=== PATIENT | male | born 1955 | race Caucasian/White ===

== ENCOUNTER → 2020-05-14 | Emergency (ER) | payer MEDICAID ==
[~2020-05-14] VITALS: Ht 175.3 cm; Wt 99.8 kg
[~2020-05-14] MED LIST: ALLO100T PO; ASPI81CH58 PO; BACL10TA PO; CLOP75TA28 PO; DICL1GEL26 TD; DOX100T PO; ECON1CRE EX; GABA300C10; LISI-275 PO; LORA-622 PO; METF-370 PO; METO25TA5 PO; OXYC325T14 PO; PANT40TA2 PO; PRAV20TA3 PO; RANO1000 PO; TRIA0.1P11 TOP; methylPREDNISolone SOD SUCC 125 MG/2 ML VL IM ONE
[2020-05-14 19:47] VITALS: BP 142/79
[2020-05-14 22:46] LABS: Basophils # (auto) 0.1 10 ^3/uL (0-0.2); Basophils % (auto) 0.6 % (0.0-2.0); Eosinophils # (auto) 0.7 10 ^3/uL (0-0.8); Eosinophils % (auto) 7.2 % (0.0-7.0); Hematocrit 42.3 % (41.0-53.0); Hemoglobin 14.4 g/dL (13.5-17.5); Lymphocytes # (auto) 2.8 10 ^3/uL (0.4-5.4); Lymphocytes % (auto) 28.5 % (10.0-50.0); Mean Corpuscular Hemoglobin 31.2 pg (28.0-32.0); Mean Corpuscular Hgb Conc. 34.1 g/dL (32.0-36.0); Mean Corpuscular Volume 91.5 fL (80.0-100.0); Monocytes # (auto) 0.7 10 ^3/uL (0-1.3); Monocytes % (auto) 7.3 % (0.0-12.0); Neutrophils # (auto) 5.6 10 ^3/uL (1.6-8.6); Neutrophils % (auto) 56.4 % (37.0-80.0); Nucleated Red Blood Cells % 0.1 %; Platelet Count (auto) 262 10^3/uL (140-450); Red Blood Cells 4.62 10^6/uL (4.5-5.90); Red Cell Distribution Width 14.7 % (11.8-14.3); White Blood Cell 9.9 10^3/uL (4.4-10.8)
[2020-05-14 23:02] LABS: Albumin 3.9 g/dL (3.4-5.0); Anion Gap 5 (5-15); Blood Urea Nitrogen 13 mg/dL (7-18); Calcium 9.2 mg/dL (8.5-10.1); Carbon Dioxide 27 mmol/L (21-32); Chloride 109 mmol/L (98-107); Glucose 98 mg/dL (74-106); Potassium 4.1 mmol/L (3.5-5.1); Sodium 141 mmol/L (136-145)
[2020-05-14 23:07] LABS: Alanine Aminotransferase 28 U/L (16-61); Alkaline Phosphatase 86 U/L (45-117); Aspartate Aminotransferase 15 U/L (15-37); BUN/Creatinine Ratio 11.4; Bilirubin, Total 0.4 mg/dL (0.2-1.0); GFR African American 83 mL/min; GFR Non-African American 69 mL/min; Total Protein 7.6 g/dL (6.4-8.2)
== END | disposition home or self-care (01) ==
LOC: ER 19:36
DX: M54.31 Sciatica, right side (principal); G89.4 Chronic pain syndrome; R07.9 Chest pain, unspecified; M25.571 Pain in right ankle and joints of right foot; J45.909 Unspecified asthma, uncomplicated; E11.9 Type 2 diabetes mellitus without complications; E78.5 Hyperlipidemia, unspecified; I10 Essential (primary) hypertension; I25.2 Old myocardial infarction; I25.810 Atherosclerosis of coronary artery bypass graft(s) without angina pectoris; Z98.61 Coronary angioplasty status; Z79.82 Long term (current) use of aspirin; Z79.899 Other long term (current) drug therapy
CPT/HCPCS: 36415; 71045; 80053; 83880; 84484; 85025; 93005; 96372; 99285; J2930

== ENCOUNTER 2020-09-15 14:28 | Inpatient (IN) | payer MEDICAID ==
[~2020-09-15] VITALS: Ht 175.3 cm; Wt 96.8 kg
[~2020-09-15 14:28] MED LIST changes: -methylPREDNISolone SOD SUCC 125 MG/2 ML VL IM ONE
[2020-09-15] MEDS ORDERED: ACETAMINOPHEN 325 MG TAB PO ONE (16:15)
[2020-09-15 18:15] LABS: Basophils # (auto) 0 10 ^3/uL (0-0.2); Basophils % (auto) 0.1 % (0.0-2.0); Eosinophils # (auto) 0 10 ^3/uL (0-0.8); Hematocrit 36.9 % (41.0-53.0); Hemoglobin 12.5 g/dL (13.5-17.5); Lymphocytes # (auto) 0.8 10 ^3/uL (0.4-5.4); Lymphocytes % (auto) 5.8 % (10.0-50.0); Mean Corpuscular Hemoglobin 30.4 pg (28.0-32.0); Mean Corpuscular Hgb Conc. 33.9 g/dL (32.0-36.0); Mean Corpuscular Volume 89.7 fL (80.0-100.0); Monocytes # (auto) 0.6 10 ^3/uL (0-1.3); Monocytes % (auto) 4.5 % (0.0-12.0); Neutrophils # (auto) 11.6 10 ^3/uL (1.6-8.6); Neutrophils % (auto) 89.6 % (37.0-80.0); Nucleated Red Blood Cells % 0.2 %; Platelet Count (auto) 339 10^3/uL (140-450); Red Blood Cells 4.12 10^6/uL (4.5-5.90)
[2020-09-15 18:22] LABS: Albumin 2.5 g/dL (3.4-5.0); Anion Gap 9 (5-15); BUN/Creatinine Ratio 19.7; Blood Urea Nitrogen 24 mg/dL (7-18); Calcium 8.2 mg/dL (8.5-10.1); Carbon Dioxide 21 mmol/L (21-32); Chloride 101 mmol/L (98-107); GFR African American 77 mL/min; GFR Non-African American 64 mL/min; Glucose 104 mg/dL (74-106); Potassium 4.4 mmol/L (3.5-5.1); Sodium 131 mmol/L (136-145)
[2020-09-15 18:26] LABS: INR 1.15 (0.9-1.15); Partial Thromboplastin Time 29.2 sec (23.0-31.2)
[2020-09-15 18:27] LABS: Alanine Aminotransferase 91 U/L (16-61); Alkaline Phosphatase 96 U/L (45-117); Aspartate Aminotransferase 73 U/L (15-37); Bilirubin, Total 0.5 mg/dL (0.2-1.0); Total Protein 7.4 g/dL (6.4-8.2)
[2020-09-15] MEDS ORDERED: ONDANSETRON HCL 4 MG/2 ML VIAL IV PRN (23:00)
[2020-09-15] MEDS ORDERED: NITROGLYCERIN 0.4 MG SL TAB SL PRN (23:00)
[2020-09-15] MEDS ORDERED: ACETAMINOPHEN 500 MG TAB PO PRN (23:00)
[2020-09-15] MEDS ORDERED: MORPHINE SULF INJ 2 MG/ML SYRINGE 1ML IV PRN (23:00)
[2020-09-15] MEDS ORDERED: DEXTROSE (50%) 50ML SYRG IV PRN (23:00)
[2020-09-15 23:50] VITALS: BP 106/66
[2020-09-16] MEDS: AZITHROMYCIN 500MG/D5WorNS 250ml IV SCH ×2 (00:11→11:48)
[2020-09-16 02:14] LABS: Magnesium 2.1 mg/dL (1.6-2.6)
[2020-09-16 02:22] LABS: CRP High Sensitivity 15.3 mg/dL (< 0.3)
[2020-09-16 06:00] VITALS: BP 108/62
[2020-09-16] MEDS: ACCU-CHEK COMFORT CURVE STRIP VI SCH ×4 (06:43→22:22)
[2020-09-16] MEDS: InsuLIN REG 1unit/0.01ml Soln (100units/ml) SC SCH ×4 (06:43→23:37)
[2020-09-16 07:49] LABS: Basophils # (auto) 0 10 ^3/uL (0-0.2); Basophils % (auto) 0.1 % (0.0-2.0); Eosinophils # (auto) 0 10 ^3/uL (0-0.8); Eosinophils % (auto) 0.1 % (0.0-7.0); Hematocrit 36.5 % (41.0-53.0); Hemoglobin 12.3 g/dL (13.5-17.5); Lymphocytes # (auto) 0.9 10 ^3/uL (0.4-5.4); Lymphocytes % (auto) 7.7 % (10.0-50.0); Mean Corpuscular Hemoglobin 30.3 pg (28.0-32.0); Mean Corpuscular Hgb Conc. 33.7 g/dL (32.0-36.0); Mean Corpuscular Volume 89.8 fL (80.0-100.0); Monocytes # (auto) 0.4 10 ^3/uL (0-1.3); Monocytes % (auto) 3.1 % (0.0-12.0); Neutrophils # (auto) 10.7 10 ^3/uL (1.6-8.6); Platelet Count (auto) 334 10^3/uL (140-450); Red Blood Cells 4.06 10^6/uL (4.5-5.90); Red Cell Distribution Width 14.2 % (11.8-14.3); White Blood Cell 12.1 10^3/uL (4.4-10.8)
[2020-09-16 08:14] LABS: Potassium 4.3 mmol/L (3.5-5.1)
[2020-09-16 08:29] LABS: Albumin 2.2 g/dL (3.4-5.0); BUN/Creatinine Ratio 17.1; Bilirubin, Total 0.6 mg/dL (0.2-1.0); Calcium 8.5 mg/dL (8.5-10.1); Total Protein 7.3 g/dL (6.4-8.2)
[2020-09-16 09:28] LABS: Urine Bacteria NONE SEEN /hpf (None Seen); Urine Blood Negative /uL (Negative); Urine Mucus FEW (None Seen); Urine Specific Gravity 1.022 (1.001-1.035); Urine WBC 2 /hpf (0 - 3)
[2020-09-16] MEDS: ALBUTEROL SULF HFA 90MCG INH 200DOSE IN PRN (09:50)
[2020-09-16] MEDS: DexAMETHasone SOD PHOS 10MG/1ML VIAL INJ IV SCH (11:48)
[2020-09-16] MEDS: ASCORBIC ACID 1,000 MG TAB PO SCH (11:49)
[2020-09-16] MEDS: LISINOPRIL 5 MG TAB PO SCH (11:49)
[2020-09-16] MEDS: CHOLECALCIFEROL (VITD3) 2,000 UNIT CAP PO SCH (11:49)
[2020-09-16] MEDS: ZINC SULFATE 220mg CAP or TAB PO SCH (11:49)
[2020-09-16] MEDS: METOPROLOL SUCCINATE XL 50 MG TAB PO SCH (11:49)
[2020-09-16] MEDS: CLOPIDOGREL BISULFATE 75 MG TAB PO SCH (11:49)
[2020-09-16] MEDS: ASPirin 81 mg TAB PO SCH (11:49)
[2020-09-16] MEDS: PANTOPRAZOLE 40 MG TAB PO SCH (11:49)
[2020-09-16] MEDS: ENOXAPARIN SOD 40 MG/0.4 ML SYRINGE SC SCH ×2 (11:50→22:22)
[2020-09-16] MEDS: ALLOPURINOL 100 MG TAB PO SCH (11:50)
[2020-09-16] MEDS: RANOLAZINE ER 500 MG TAB PO SCH (11:50)
[2020-09-16] MEDS ORDERED: REMDESIVIR PER PHARMACY 0 ML IV SCH (12:30)
[2020-09-16] MEDS ORDERED: REMDESIVIR 200 MG in NS 210ml LOADING DOSE ADULT IV ONE (15:00)
[2020-09-16] MEDS: ATORVASTATIN 20 MG TAB PO SCH (22:22)
[2020-09-17] MEDS: InsuLIN REG 1unit/0.01ml Soln (100units/ml) SC SCH ×4 (06:55→21:30)
[2020-09-17] MEDS: ACCU-CHEK COMFORT CURVE STRIP VI SCH ×4 (06:55→21:30)
[2020-09-17 08:26] LABS: Potassium 4.4 mmol/L (3.5-5.1)
[2020-09-17 08:56] LABS: Albumin 2.1 g/dL (3.4-5.0); BUN/Creatinine Ratio 22.1; Bilirubin, Total 0.3 mg/dL (0.2-1.0); Calcium 8.8 mg/dL (8.5-10.1); Total Protein 7.2 g/dL (6.4-8.2)
[2020-09-17] MEDS: DexAMETHasone SOD PHOS 10MG/1ML VIAL INJ IV SCH (11:27)
[2020-09-17] MEDS: ZINC SULFATE 220mg CAP or TAB PO SCH (11:27)
[2020-09-17] MEDS: ASPirin 81 mg TAB PO SCH (11:27)
[2020-09-17] MEDS: CLOPIDOGREL BISULFATE 75 MG TAB PO SCH (11:28)
[2020-09-17] MEDS: PANTOPRAZOLE 40 MG TAB PO SCH (11:32)
[2020-09-17] MEDS: RANOLAZINE ER 500 MG TAB PO SCH (11:33)
[2020-09-17] MEDS: CHOLECALCIFEROL (VITD3) 2,000 UNIT CAP PO SCH (11:34)
[2020-09-17] MEDS: METOPROLOL SUCCINATE XL 50 MG TAB PO SCH (11:34)
[2020-09-17] MEDS: ASCORBIC ACID 1,000 MG TAB PO SCH (11:34)
[2020-09-17] MEDS: ENOXAPARIN SOD 40 MG/0.4 ML SYRINGE SC SCH ×2 (11:35→21:30)
[2020-09-17] MEDS: ALLOPURINOL 100 MG TAB PO SCH (11:35)
[2020-09-17] MEDS: LISINOPRIL 5 MG TAB PO SCH (11:35)
[2020-09-17] MEDS: AZITHROMYCIN 500MG/D5WorNS 250ml IV SCH (12:17)
[2020-09-17] MEDS: REMDESIVIR 100 MG in SODIUM CHL 0.9% 250 ML IV SCH (17:00)
[2020-09-17] MEDS: ATORVASTATIN 20 MG TAB PO SCH (21:30)
[2020-09-17 22:00] VITALS: BP 110/67
[2020-09-18] MEDS ORDERED: COLCPOW2 PO (01:24)
[2020-09-18] MEDS ORDERED: CROM4SOL6 EACHEYE (01:24)
[2020-09-18] MEDS ORDERED: ALL300T PO (01:24)
[2020-09-18] MEDS ORDERED: PROM25TA5 PO (01:24)
[2020-09-18] MEDS ORDERED: IBUP800T24 PO (01:24)
[2020-09-18] MEDS: ACCU-CHEK COMFORT CURVE STRIP VI SCH ×4 (06:25→21:52)
[2020-09-18] MEDS: InsuLIN REG 1unit/0.01ml Soln (100units/ml) SC SCH ×4 (06:38→21:48)
[2020-09-18 07:37] LABS: Potassium 4.3 mmol/L (3.5-5.1)
[2020-09-18 07:49] LABS: BUN/Creatinine Ratio 28.4; Bilirubin, Total 0.4 mg/dL (0.2-1.0); Calcium 8.9 mg/dL (8.5-10.1); Total Protein 6.7 g/dL (6.4-8.2)
[2020-09-18] MEDS: ALBUTEROL SULF HFA 90MCG INH 200DOSE IN PRN ×2 (07:56→21:49)
[2020-09-18 08:00] VITALS: BP 113/73
[2020-09-18] MEDS: METOPROLOL SUCCINATE XL 50 MG TAB PO SCH (10:00)
[2020-09-18] MEDS: ASPirin 81 mg TAB PO SCH (10:47)
[2020-09-18] MEDS: PANTOPRAZOLE 40 MG TAB PO SCH (10:58)
[2020-09-18] MEDS: CLOPIDOGREL BISULFATE 75 MG TAB PO SCH (10:58)
[2020-09-18] MEDS: ZINC SULFATE 220mg CAP or TAB PO SCH (10:58)
[2020-09-18] MEDS: AZITHROMYCIN 500MG/D5WorNS 250ml IV SCH (10:58)
[2020-09-18] MEDS: DexAMETHasone SOD PHOS 10MG/1ML VIAL INJ IV SCH (10:58)
[2020-09-18] MEDS: CHOLECALCIFEROL (VITD3) 2,000 UNIT CAP PO SCH (10:59)
[2020-09-18] MEDS: ASCORBIC ACID 1,000 MG TAB PO SCH (10:59)
[2020-09-18] MEDS: RANOLAZINE ER 500 MG TAB PO SCH (10:59)
[2020-09-18] MEDS: ALLOPURINOL 100 MG TAB PO SCH (11:00)
[2020-09-18] MEDS: LISINOPRIL 5 MG TAB PO SCH (11:00)
[2020-09-18] MEDS: ENOXAPARIN SOD 40 MG/0.4 ML SYRINGE SC SCH ×2 (11:01→21:47)
[2020-09-18 13:00] VITALS: BP 117/78
[2020-09-18] MEDS: REMDESIVIR 100 MG in SODIUM CHL 0.9% 250 ML IV SCH (15:06)
[2020-09-18 16:00] VITALS: BP 105/66
[2020-09-18] MEDS: ATORVASTATIN 20 MG TAB PO SCH (21:46)
[2020-09-19] VITALS: BP 122/68
[2020-09-19 04:13] VITALS: BP 114/58
[2020-09-19 04:30] VITALS: BP 102/71
[2020-09-19 06:52] VITALS: BP 103/62
[2020-09-19] MEDS: ALBUTEROL SULF HFA 90MCG INH 200DOSE IN PRN ×2 (06:56→19:12)
[2020-09-19] MEDS: InsuLIN REG 1unit/0.01ml Soln (100units/ml) SC SCH ×4 (06:57→22:00)
[2020-09-19] MEDS: ACCU-CHEK COMFORT CURVE STRIP VI SCH ×4 (06:57→22:00)
[2020-09-19 08:00] VITALS: BP 117/72
[2020-09-19 08:07] LABS: Basophils # (auto) 0 10 ^3/uL (0-0.2); Basophils % (auto) 0.1 % (0.0-2.0); Eosinophils # (auto) 0.1 10 ^3/uL (0-0.8); Eosinophils % (auto) 0.6 % (0.0-7.0); Hematocrit 35.5 % (41.0-53.0); Hemoglobin 12.1 g/dL (13.5-17.5); Lymphocytes # (auto) 1.3 10 ^3/uL (0.4-5.4); Lymphocytes % (auto) 13.4 % (10.0-50.0); Mean Corpuscular Hemoglobin 30.5 pg (28.0-32.0); Mean Corpuscular Hgb Conc. 34.1 g/dL (32.0-36.0); Mean Corpuscular Volume 89.7 fL (80.0-100.0); Monocytes # (auto) 0.5 10 ^3/uL (0-1.3); Monocytes % (auto) 5.5 % (0.0-12.0); Neutrophils # (auto) 7.5 10 ^3/uL (1.6-8.6); Neutrophils % (auto) 80.4 % (37.0-80.0); Nucleated Red Blood Cells % 0.1 %; Platelet Count (auto) 421 10^3/uL (140-450); Red Blood Cells 3.95 10^6/uL (4.5-5.90); Red Cell Distribution Width 13.5 % (11.8-14.3); White Blood Cell 9.3 10^3/uL (4.4-10.8)
[2020-09-19 08:26] LABS: Potassium 4.2 mmol/L (3.5-5.1)
[2020-09-19 08:35] LABS: Albumin 2.2 g/dL (3.4-5.0); BUN/Creatinine Ratio 24.4; Bilirubin, Total 0.3 mg/dL (0.2-1.0); Calcium 8.8 mg/dL (8.5-10.1); Total Protein 6.8 g/dL (6.4-8.2)
[2020-09-19] MEDS: PANTOPRAZOLE 40 MG TAB PO SCH (10:15)
[2020-09-19] MEDS: ASPirin 81 mg TAB PO SCH (10:16)
[2020-09-19] MEDS: METOPROLOL SUCCINATE XL 50 MG TAB PO SCH (10:16)
[2020-09-19] MEDS: ZINC SULFATE 220mg CAP or TAB PO SCH (10:16)
[2020-09-19] MEDS: ALLOPURINOL 100 MG TAB PO SCH (10:17)
[2020-09-19] MEDS: DexAMETHasone SOD PHOS 10MG/1ML VIAL INJ IV SCH (10:17)
[2020-09-19] MEDS: ENOXAPARIN SOD 40 MG/0.4 ML SYRINGE SC SCH ×2 (10:17→23:02)
[2020-09-19] MEDS: FUROSEMIDE 40 MG/4 ML VIAL IV SCH (10:17)
[2020-09-19] MEDS: LISINOPRIL 5 MG TAB PO SCH (10:17)
[2020-09-19] MEDS: CHOLECALCIFEROL (VITD3) 2,000 UNIT CAP PO SCH (10:18)
[2020-09-19] MEDS: CLOPIDOGREL BISULFATE 75 MG TAB PO SCH (10:18)
[2020-09-19] MEDS: ASCORBIC ACID 1,000 MG TAB PO SCH (10:18)
[2020-09-19] MEDS: AZITHROMYCIN 500MG/D5WorNS 250ml IV SCH (10:19)
[2020-09-19] MEDS: RANOLAZINE ER 500 MG TAB PO SCH (11:28)
[2020-09-19] MEDS: REMDESIVIR 100 MG in SODIUM CHL 0.9% 250 ML IV SCH (14:30)
[2020-09-19] MEDS ORDERED: FUROSEMIDE 40 MG/4 ML VIAL IV ONE (16:00)
[2020-09-19 16:30] VITALS: BP 101/62
[2020-09-19] MEDS: ATORVASTATIN 20 MG TAB PO SCH (23:02)
[2020-09-19] MEDS: TEMAZEPAM 15 MG CAP PO PRN (23:07)
[2020-09-20] VITALS: BP 103/68
[2020-09-20] MEDS: ACCU-CHEK COMFORT CURVE STRIP VI SCH ×4 (06:29→22:00)
[2020-09-20] MEDS: InsuLIN REG 1unit/0.01ml Soln (100units/ml) SC SCH ×4 (06:37→23:00)
[2020-09-20 07:01] LABS: Potassium 4.2 mmol/L (3.5-5.1)
[2020-09-20 07:16] LABS: Albumin 2.3 g/dL (3.4-5.0); BUN/Creatinine Ratio 25.5; Bilirubin, Total 0.4 mg/dL (0.2-1.0); Calcium 8.8 mg/dL (8.5-10.1); Total Protein 7.1 g/dL (6.4-8.2)
[2020-09-20] MEDS: AZITHROMYCIN 500MG/D5WorNS 250ml IV SCH (09:57)
[2020-09-20] MEDS: DexAMETHasone SOD PHOS 10MG/1ML VIAL INJ IV SCH (09:58)
[2020-09-20] MEDS: ZINC SULFATE 220mg CAP or TAB PO SCH (09:59)
[2020-09-20] MEDS: FUROSEMIDE 40 MG/4 ML VIAL IV SCH (09:59)
[2020-09-20] MEDS: ASPirin 81 mg TAB PO SCH (09:59)
[2020-09-20] MEDS: RANOLAZINE ER 500 MG TAB PO SCH (10:00)
[2020-09-20] MEDS: PANTOPRAZOLE 40 MG TAB PO SCH (10:00)
[2020-09-20] MEDS: CLOPIDOGREL BISULFATE 75 MG TAB PO SCH (10:00)
[2020-09-20] MEDS: ASCORBIC ACID 1,000 MG TAB PO SCH (10:01)
[2020-09-20] MEDS: METOPROLOL SUCCINATE XL 50 MG TAB PO SCH (10:01)
[2020-09-20] MEDS: CHOLECALCIFEROL (VITD3) 2,000 UNIT CAP PO SCH (10:02)
[2020-09-20] MEDS: LISINOPRIL 5 MG TAB PO SCH (10:03)
[2020-09-20] MEDS: ALLOPURINOL 100 MG TAB PO SCH (10:03)
[2020-09-20] MEDS: ENOXAPARIN SOD 40 MG/0.4 ML SYRINGE SC SCH ×2 (10:04→22:55)
[2020-09-20] MEDS: REMDESIVIR 100 MG in SODIUM CHL 0.9% 250 ML IV SCH (14:50)
[2020-09-20 16:00] VITALS: BP 135/51
[2020-09-20] MEDS: ATORVASTATIN 20 MG TAB PO SCH (22:55)
[2020-09-21] VITALS: BP 102/50
[2020-09-21] MEDS: ACCU-CHEK COMFORT CURVE STRIP VI SCH ×4 (06:15→22:14)
[2020-09-21] MEDS: InsuLIN REG 1unit/0.01ml Soln (100units/ml) SC SCH ×4 (06:19→22:15)
[2020-09-21 08:00] VITALS: BP 106/58
[2020-09-21] MEDS: LISINOPRIL 5 MG TAB PO SCH (10:00)
[2020-09-21] MEDS: DexAMETHasone SOD PHOS 10MG/1ML VIAL INJ IV SCH (11:16)
[2020-09-21] MEDS: FUROSEMIDE 40 MG/4 ML VIAL IV SCH (11:16)
[2020-09-21] MEDS: ASPirin 81 mg TAB PO SCH (11:16)
[2020-09-21] MEDS: PANTOPRAZOLE 40 MG TAB PO SCH (11:17)
[2020-09-21] MEDS: ASCORBIC ACID 1,000 MG TAB PO SCH (11:17)
[2020-09-21] MEDS: CLOPIDOGREL BISULFATE 75 MG TAB PO SCH (11:17)
[2020-09-21] MEDS: ZINC SULFATE 220mg CAP or TAB PO SCH (11:17)
[2020-09-21] MEDS: CHOLECALCIFEROL (VITD3) 2,000 UNIT CAP PO SCH (11:17)
[2020-09-21] MEDS: RANOLAZINE ER 500 MG TAB PO SCH (11:17)
[2020-09-21] MEDS: ALLOPURINOL 100 MG TAB PO SCH (11:17)
[2020-09-21] MEDS: ENOXAPARIN SOD 40 MG/0.4 ML SYRINGE SC SCH ×2 (11:18→22:14)
[2020-09-21] MEDS: METOPROLOL SUCCINATE XL 50 MG TAB PO SCH (11:18)
[2020-09-21] MEDS: GABAPENTIN 300 MG CAP PO SCH ×2 (14:37→22:13)
[2020-09-21 16:00] VITALS: BP 101/52
[2020-09-21] MEDS ORDERED: cefTRIAXone 1GM/50ML D5W 50 ML IV ONE (16:45)
[2020-09-21] MEDS: ALBUTEROL SULF HFA 90MCG INH 200DOSE IN PRN (20:22)
[2020-09-21] MEDS: ATORVASTATIN 20 MG TAB PO SCH (22:13)
[2020-09-21] MEDS: DOXYCYCLINE 100 MG TAB/CAP PO SCH (22:14)
[2020-09-22] VITALS: BP 128/70
[2020-09-22 00:02] VITALS: BP 128/70
[2020-09-22] MEDS: GABAPENTIN 300 MG CAP PO SCH ×3 (06:15→22:01)
[2020-09-22] MEDS: InsuLIN REG 1unit/0.01ml Soln (100units/ml) SC SCH ×4 (06:15→22:03)
[2020-09-22] MEDS: ACCU-CHEK COMFORT CURVE STRIP VI SCH ×4 (06:15→22:02)
[2020-09-22 08:00] VITALS: BP 114/63
[2020-09-22] MEDS: LISINOPRIL 5 MG TAB PO SCH (10:00)
[2020-09-22] MEDS: METOPROLOL SUCCINATE XL 50 MG TAB PO SCH (10:00)
[2020-09-22] MEDS: DexAMETHasone SOD PHOS 10MG/1ML VIAL INJ IV SCH (10:07)
[2020-09-22] MEDS: FUROSEMIDE 40 MG/4 ML VIAL IV SCH (10:08)
[2020-09-22] MEDS: ASPirin 81 mg TAB PO SCH (10:08)
[2020-09-22] MEDS: CLOPIDOGREL BISULFATE 75 MG TAB PO SCH (10:08)
[2020-09-22] MEDS: PANTOPRAZOLE 40 MG TAB PO SCH (10:08)
[2020-09-22] MEDS: RANOLAZINE ER 500 MG TAB PO SCH (10:08)
[2020-09-22] MEDS: ZINC SULFATE 220mg CAP or TAB PO SCH (10:08)
[2020-09-22] MEDS: DOXYCYCLINE 100 MG TAB/CAP PO SCH ×2 (10:09→22:01)
[2020-09-22] MEDS: ASCORBIC ACID 1,000 MG TAB PO SCH (10:09)
[2020-09-22] MEDS: CHOLECALCIFEROL (VITD3) 2,000 UNIT CAP PO SCH (10:09)
[2020-09-22] MEDS: ALLOPURINOL 100 MG TAB PO SCH (10:10)
[2020-09-22] MEDS: ENOXAPARIN SOD 40 MG/0.4 ML SYRINGE SC SCH ×2 (10:10→22:01)
[2020-09-22 16:00] VITALS: BP 103/55
[2020-09-22] MEDS: ALBUTEROL SULF HFA 90MCG INH 200DOSE IN PRN (19:53)
[2020-09-22] MEDS: cefTRIAXone 1GM/50ML D5W 50 ML IV SCH (22:01)
[2020-09-22] MEDS: TEMAZEPAM 15 MG CAP PO PRN (22:01)
[2020-09-22] MEDS: ATORVASTATIN 20 MG TAB PO SCH (22:01)
[2020-09-23] VITALS: BP 113/70
[2020-09-23] MEDS: GABAPENTIN 300 MG CAP PO SCH ×3 (06:04→21:32)
[2020-09-23] MEDS: InsuLIN REG 1unit/0.01ml Soln (100units/ml) SC SCH ×4 (06:49→22:00)
[2020-09-23] MEDS: ACCU-CHEK COMFORT CURVE STRIP VI SCH ×4 (06:49→22:26)
[2020-09-23 08:00] VITALS: BP 118/65
[2020-09-23] MEDS: DexAMETHasone SOD PHOS 10MG/1ML VIAL INJ IV SCH (09:58)
[2020-09-23] MEDS: CLOPIDOGREL BISULFATE 75 MG TAB PO SCH (09:59)
[2020-09-23] MEDS: FUROSEMIDE 40 MG/4 ML VIAL IV SCH (09:59)
[2020-09-23] MEDS: ASPirin 81 mg TAB PO SCH (09:59)
[2020-09-23] MEDS: ZINC SULFATE 220mg CAP or TAB PO SCH (09:59)
[2020-09-23] MEDS: RANOLAZINE ER 500 MG TAB PO SCH (09:59)
[2020-09-23] MEDS: PANTOPRAZOLE 40 MG TAB PO SCH (09:59)
[2020-09-23] MEDS: ASCORBIC ACID 1,000 MG TAB PO SCH (10:00)
[2020-09-23] MEDS: METOPROLOL SUCCINATE XL 50 MG TAB PO SCH (10:00)
[2020-09-23] MEDS: ALLOPURINOL 100 MG TAB PO SCH (10:00)
[2020-09-23] MEDS: ENOXAPARIN SOD 40 MG/0.4 ML SYRINGE SC SCH ×2 (10:00→21:33)
[2020-09-23] MEDS: DOXYCYCLINE 100 MG TAB/CAP PO SCH ×2 (10:00→21:32)
[2020-09-23] MEDS: CHOLECALCIFEROL (VITD3) 2,000 UNIT CAP PO SCH (10:00)
[2020-09-23] MEDS: LISINOPRIL 5 MG TAB PO SCH (10:00)
[2020-09-23] MEDS: cefTRIAXone 1GM/50ML D5W 50 ML IV SCH (20:36)
[2020-09-23] MEDS: TEMAZEPAM 15 MG CAP PO PRN (21:33)
[2020-09-23] MEDS: ATORVASTATIN 20 MG TAB PO SCH (21:33)
[2020-09-24] VITALS: BP 120/75
[2020-09-24 05:58] LABS: Basophils # (auto) 0.1 10 ^3/uL (0-0.2); Basophils % (auto) 0.7 % (0.0-2.0); Eosinophils # (auto) 0 10 ^3/uL (0-0.8); Eosinophils % (auto) 0.1 % (0.0-7.0); Hemoglobin 12.8 g/dL (13.5-17.5); Lymphocytes % (auto) 12.9 % (10.0-50.0); Mean Corpuscular Hemoglobin 30.6 pg (28.0-32.0); Mean Corpuscular Hgb Conc. 34.6 g/dL (32.0-36.0); Mean Corpuscular Volume 88.6 fL (80.0-100.0); Monocytes % (auto) 6.5 % (0.0-12.0); Neutrophils # (auto) 12.2 10 ^3/uL (1.6-8.6); Neutrophils % (auto) 79.8 % (37.0-80.0); Platelet Count (auto) 393 10^3/uL (140-450); Red Blood Cells 4.18 10^6/uL (4.5-5.90); Red Cell Distribution Width 13.6 % (11.8-14.3); White Blood Cell 15.3 10^3/uL (4.4-10.8)
[2020-09-24 06:03] LABS: Albumin 2.6 g/dL (3.4-5.0); Anion Gap 8 (5-15); Blood Urea Nitrogen 30 mg/dL (7-18); Carbon Dioxide 28 mmol/L (21-32); Chloride 98 mmol/L (98-107); Glucose 112 mg/dL (74-106); Potassium 3.9 mmol/L (3.5-5.1); Sodium 134 mmol/L (136-145)
[2020-09-24 06:06] LABS: Alanine Aminotransferase 51 U/L (16-61); BUN/Creatinine Ratio 32.6; GFR African American 107 mL/min; GFR Non-African American 88 mL/min
[2020-09-24 06:10] LABS: Alkaline Phosphatase 85 U/L (45-117); Aspartate Aminotransferase 18 U/L (15-37); Bilirubin, Total 0.3 mg/dL (0.2-1.0); Total Protein 6.8 g/dL (6.4-8.2)
[2020-09-24] MEDS: ACCU-CHEK COMFORT CURVE STRIP VI SCH ×4 (06:20→21:55)
[2020-09-24] MEDS: InsuLIN REG 1unit/0.01ml Soln (100units/ml) SC SCH ×4 (06:21→21:55)
[2020-09-24] MEDS: GABAPENTIN 300 MG CAP PO SCH ×3 (06:22→21:46)
[2020-09-24] MEDS: ALBUTEROL SULF HFA 90MCG INH 200DOSE IN PRN ×2 (07:46→20:37)
[2020-09-24 08:00] VITALS: BP 123/73
[2020-09-24] MEDS: METOPROLOL SUCCINATE XL 50 MG TAB PO SCH (09:56)
[2020-09-24] MEDS: DexAMETHasone SOD PHOS 10MG/1ML VIAL INJ IV SCH (10:03)
[2020-09-24] MEDS: ASPirin 81 mg TAB PO SCH (10:04)
[2020-09-24] MEDS: FUROSEMIDE 40 MG/4 ML VIAL IV SCH (10:04)
[2020-09-24] MEDS: DOXYCYCLINE 100 MG TAB/CAP PO SCH ×2 (10:04→21:46)
[2020-09-24] MEDS: ENOXAPARIN SOD 40 MG/0.4 ML SYRINGE SC SCH ×2 (10:04→21:47)
[2020-09-24] MEDS: CLOPIDOGREL BISULFATE 75 MG TAB PO SCH (10:04)
[2020-09-24] MEDS: ASCORBIC ACID 1,000 MG TAB PO SCH (10:04)
[2020-09-24] MEDS: CHOLECALCIFEROL (VITD3) 2,000 UNIT CAP PO SCH (10:05)
[2020-09-24] MEDS: ALLOPURINOL 100 MG TAB PO SCH (10:06)
[2020-09-24] MEDS: PANTOPRAZOLE 40 MG TAB PO SCH (10:09)
[2020-09-24] MEDS: LISINOPRIL 5 MG TAB PO SCH (10:10)
[2020-09-24] MEDS: RANOLAZINE ER 500 MG TAB PO SCH (10:10)
[2020-09-24] MEDS: ZINC SULFATE 220mg CAP or TAB PO SCH (10:10)
[2020-09-24 11:08] LABS: Urine Bacteria FEW /hpf (None Seen); Urine Blood Negative /uL (Negative); Urine Specific Gravity 1.013 (1.001-1.035); Urine WBC <1 /hpf (0 - 3)
[2020-09-24 16:00] VITALS: BP 107/56
[2020-09-24] MEDS: cefTRIAXone 1GM/50ML D5W 50 ML IV SCH (20:36)
[2020-09-24] MEDS: ATORVASTATIN 20 MG TAB PO SCH (21:46)
[2020-09-24] MEDS: TEMAZEPAM 15 MG CAP PO PRN (21:49)
[2020-09-25] VITALS: BP 106/70
[2020-09-25] MEDS: GABAPENTIN 300 MG CAP PO SCH ×2 (06:41→15:26)
[2020-09-25] MEDS: ACCU-CHEK COMFORT CURVE STRIP VI SCH ×3 (06:41→16:54)
[2020-09-25] MEDS: InsuLIN REG 1unit/0.01ml Soln (100units/ml) SC SCH ×3 (06:51→16:55)
[2020-09-25 07:27] LABS: Hematocrit 37.3 % (41.0-53.0); Hemoglobin 12.5 g/dL (13.5-17.5); Mean Corpuscular Hgb Conc. 33.4 g/dL (32.0-36.0); Platelet Count (auto) 339 10^3/uL (140-450); Red Blood Cells 4.15 10^6/uL (4.5-5.90); Red Cell Distribution Width 13.7 % (11.8-14.3); White Blood Cell 15.6 10^3/uL (4.4-10.8)
[2020-09-25 08:00] VITALS: BP 127/68
[2020-09-25 08:13] LABS: Basophils % (manual) 0 (0.0-2.0); Blast Cells 0; Eosinophils % (manual) 0 (0-7); Promyelocytes % 0; Reactive Lymphocytes 0
[2020-09-25] MEDS: FUROSEMIDE 40 MG/4 ML VIAL IV SCH (09:23)
[2020-09-25] MEDS: DexAMETHasone SOD PHOS 10MG/1ML VIAL INJ IV SCH (09:23)
[2020-09-25] MEDS: ENOXAPARIN SOD 40 MG/0.4 ML SYRINGE SC SCH (09:24)
[2020-09-25] MEDS: DOXYCYCLINE 100 MG TAB/CAP PO SCH (09:24)
[2020-09-25] MEDS: ZINC SULFATE 220mg CAP or TAB PO SCH (09:24)
[2020-09-25] MEDS: ALLOPURINOL 100 MG TAB PO SCH (09:24)
[2020-09-25] MEDS: METOPROLOL SUCCINATE XL 50 MG TAB PO SCH (09:25)
[2020-09-25] MEDS: RANOLAZINE ER 500 MG TAB PO SCH (09:26)
[2020-09-25] MEDS: ASPirin 81 mg TAB PO SCH (09:26)
[2020-09-25] MEDS: CLOPIDOGREL BISULFATE 75 MG TAB PO SCH (09:26)
[2020-09-25] MEDS: LISINOPRIL 5 MG TAB PO SCH (09:26)
[2020-09-25] MEDS: PANTOPRAZOLE 40 MG TAB PO SCH (09:26)
[2020-09-25] MEDS: CHOLECALCIFEROL (VITD3) 2,000 UNIT CAP PO SCH (09:27)
[2020-09-25] MEDS: ASCORBIC ACID 1,000 MG TAB PO SCH (09:27)
[2020-09-25] MEDS ORDERED: AMOX500T86 PO (10:55)
[2020-09-25] MEDS ORDERED: ALBUAER3 IN (10:55)
[2020-09-25] MEDS ORDERED: CHOL20007 PO (10:55)
[2020-09-25] MEDS ORDERED: ASCO500T11 PO (10:55)
[2020-09-25 11:00] LABS: Band Neutrophils % (manual) 3; Lymphocytes % (manual) 12 (10.0-50.0); Metamyelocytes % 3; Monocytes % (manual) 7 (0-12); Myelocytes % 1
[2020-09-25 11:56] VITALS: BP 116/78
[2020-09-25 16:00] VITALS: BP 111/69
== END 2020-09-25 18:42 | disposition home or self-care (01) | DRG 137 ==
LOC: EDBD 14:28 → ER 14:35 → TELE 14:36 → TELE-WESTW 09-17 22:15
PROVIDERS: ADMIT Nurse Practitioner; ATTEND Internal Medicine
PROC: XW033E5 Introduction of Remdesivir Anti-infective into Peripheral Vein, Percutaneous Approach, New Technology Group 5 (ICD-10-PCS; 2020-09-16)
PROC: XW13325 Transfusion of Convalescent Plasma (Nonautologous) into Peripheral Vein, Percutaneous Approach, New Technology Group 5 (ICD-10-PCS; principal; 2020-09-19)
DX: U07.1 COVID-19 (principal); J12.89 Other viral pneumonia; J96.01 Acute respiratory failure with hypoxia; E43 Unspecified severe protein-calorie malnutrition; R65.10 Systemic inflammatory response syndrome (SIRS) of non-infectious origin without acute organ dysfunction; E87.1 Hypo-osmolality and hyponatremia; E11.65 Type 2 diabetes mellitus with hyperglycemia; E66.01 Morbid (severe) obesity due to excess calories; J15.6 Pneumonia due to other Gram-negative bacteria; J45.909 Unspecified asthma, uncomplicated; I25.10 Atherosclerotic heart disease of native coronary artery without angina pectoris; I10 Essential (primary) hypertension; E78.5 Hyperlipidemia, unspecified; M10.9 Gout, unspecified; Z68.31 Body mass index [BMI] 31.0-31.9, adult; I25.2 Old myocardial infarction; Z79.02 Long term (current) use of antithrombotics/antiplatelets; Z79.82 Long term (current) use of aspirin; Z82.0 Family history of epilepsy and other diseases of the nervous system; Z82.3 Family history of stroke; Z82.49 Family history of ischemic heart disease and other diseases of the circulatory system; Z83.3 Family history of diabetes mellitus; Z95.1 Presence of aortocoronary bypass graft
CPT/HCPCS: 36415; 36600; 71045; 80053; 81001; 82728; 82805; 82962; 83036; 83615; 83735; 83880; 84443; 84484; 85007; 85025; 85027; 85379; 85610; 85730; 86141; 86850; 86900; 86901; 87086; 87088; 87186; 87426; 94640; G0378; J0696; J1100; J1815

== ENCOUNTER 2022-03-25 13:19 | Inpatient (IN) | payer MEDICARE, MEDICAID ==
[~2022-03-25] VITALS: Ht 175.3 cm; Wt 99.7 kg
[~2022-03-25 13:19] MED LIST changes: +ALBUAER3 IN; +ALL300T PO; +AMOX500T86 PO; +ASCO500T11 PO; +ASPI1CHW13 PO; -ASPI81CH58 PO; +CHOL20007 PO; +COLCPOW2 PO; +CROM4SOL6 EACHEYE; -DOX100T PO; -ECON1CRE EX; +ECON1CRE6 EX; +PROM25TA5 PO; -TRIA0.1P11 TOP; +TRIA0.1P17 TOP
[2022-03-25 13:57] LABS: Basophils # (auto) 0.1 10 ^3/uL (0-0.2); Basophils % (auto) 0.6 % (0.0-2.0); Eosinophils # (auto) 0.4 10 ^3/uL (0-0.8); Eosinophils % (auto) 5.2 % (0.0-7.0); Hematocrit 41.3 % (41.0-53.0); Hemoglobin 13.7 g/dL (13.5-17.5); Lymphocytes # (auto) 2.1 10 ^3/uL (0.4-5.4); Lymphocytes % (auto) 25.2 % (10.0-50.0); Mean Corpuscular Hemoglobin 30.1 pg (28.0-32.0); Mean Corpuscular Hgb Conc. 33.3 g/dL (32.0-36.0); Mean Corpuscular Volume 90.6 fL (80.0-100.0); Monocytes # (auto) 0.5 10 ^3/uL (0-1.3); Monocytes % (auto) 5.6 % (0.0-12.0); Neutrophils # (auto) 5.4 10 ^3/uL (1.6-8.6); Neutrophils % (auto) 63.4 % (37.0-80.0); Red Blood Cells 4.56 10^6/uL (4.5-5.90); Red Cell Distribution Width 14.2 % (11.8-14.3); White Blood Cell 8.5 10^3/uL (4.4-10.8)
[2022-03-25 14:14] LABS: INR 1.04 (0.9-1.15); Partial Thromboplastin Time 26.2 sec (23.6-33.0)
[2022-03-25 14:16] LABS: Albumin 3.6 g/dL (3.4-5.0); Calcium 8.6 mg/dL (8.5-10.1); Potassium 3.9 mmol/L (3.5-5.1)
[2022-03-25 14:20] LABS: Bilirubin, Total 0.5 mg/dL (0.2-1.0); Total Protein 7.4 g/dL (6.4-8.2)
[2022-03-25] MEDS ORDERED: NITROGLYCERIN 0.4 MG SL TAB SL PRN (16:15)
[2022-03-25] MEDS ORDERED: ACETAMINOPHEN 325 MG TAB PO PRN (16:15)
[2022-03-25] MEDS ORDERED: MORPHINE SULFATE INJ 2 MG/ml SYRG IV PRN ×2 (16:15)
[2022-03-25] MEDS ORDERED: DOCUSATE SOD 100 MG CAP PO PRN (16:15)
[2022-03-25] MEDS ORDERED: HYDROcodone-ACET 5/325MG TAB PO PRN (16:15)
[2022-03-25] MEDS ORDERED: ONDANSETRON HCL 4 MG/2 ML VIAL IV PRN (16:15)
[2022-03-25] MEDS ORDERED: DEXTROSE (50%) 50ML SYRG IV PRN (16:30)
[2022-03-25] MEDS ORDERED: ALBUTEROL SULF 2.5 MG/0.5ML(0.5%) NEB SOLN NEB PRN (16:45)
[2022-03-25] MEDS ORDERED: IPRATROPIUM BROM 0.5 MG/2.5ML INH SOL NEB PRN (16:45)
[2022-03-25 16:57] LABS: Cholesterol 185 mg/dL (< 200)
[2022-03-25 17:00] LABS: HDL Cholesterol 34 mg/dL (40-59); LDL Cholesterol 118 mg/dL (< 100); Triglycerides 311 mg/dL (< 150)
[2022-03-25] MEDS: InsuLIN REG 1unit/0.01ml Soln (100units/ml) SC SCH (17:00)
[2022-03-25 17:05] VITALS: BP 106/56
[2022-03-25] MEDS: ACCU-CHEK COMFORT CURVE STRIP VI SCH ×2 (17:25→22:00)
[2022-03-25 22:00] VITALS: BP 131/53
[2022-03-25] MEDS ORDERED: InsuLIN REG 1unit/0.01ml Soln (100units/ml) SC SCH (22:00)
[2022-03-26 05:00] VITALS: BP 107/65
[2022-03-26] MEDS: InsuLIN REG 1unit/0.01ml Soln (100units/ml) SC SCH ×2 (06:02→12:14)
[2022-03-26] MEDS: ACCU-CHEK COMFORT CURVE STRIP VI SCH ×2 (06:02→12:14)
[2022-03-26 06:27] LABS: Urine Bacteria NONE SEEN /hpf (None Seen); Urine Blood Negative /uL (Negative); Urine Hyaline Cast FEW /lpf (0 - 2); Urine Specific Gravity 1.022 (1.001-1.035); Urine WBC <1 /hpf (0 - 3)
[2022-03-26 08:00] VITALS: BP 113/67
[2022-03-26 09:00] VITALS: BP 113/67
[2022-03-26 13:00] VITALS: BP 132/69
[2022-03-26 16:59] VITALS: BP 147/67
[2022-03-26 22:00] VITALS: BP 154/59
[2022-03-26] MEDS: ATORVASTATIN 20 MG TAB PO SCH (23:03)
[2022-03-26] MEDS: METOPROLOL TARTRATE 25 MG TAB PO SCH (23:04)
[2022-03-26] MEDS: ALUM & MAG HYDROX-SIMETH LIQ(MAALOX) 30 ML PO PRN (23:10)
[2022-03-27 05:00] VITALS: BP 123/59
[2022-03-27 08:05] VITALS: BP 133/65
[2022-03-27 09:00] VITALS: BP 133/65
[2022-03-27] MEDS: ASPirin-EC 81 mg tab PO SCH ×2 (10:00→10:56)
[2022-03-27] MEDS: METOPROLOL TARTRATE 25 MG TAB PO SCH ×3 (10:00→21:55)
[2022-03-27] MEDS: CLOPIDOGREL BISULFATE 75 MG TAB PO SCH ×2 (10:00→10:56)
[2022-03-27 13:00] VITALS: BP 136/67
[2022-03-27] MEDS ORDERED: OXYC325T14 PO (15:28)
[2022-03-27] MEDS ORDERED: CHOL20007 PO (15:28)
[2022-03-27] MEDS ORDERED: ISOS1TAB28 PO (15:28)
[2022-03-27] MEDS ORDERED: IOHEXOL 350 MG/ML 100ML IJ ONE ×2 (15:44→16:33)
[2022-03-27] MEDS ORDERED: HEPARIN IN NS 1000Units/500mL 1,500 ML ONE (15:45)
[2022-03-27] MEDS ORDERED: LIDOCAINE 2%HCL (LOCAL ANESTH.) INJ 10ml MDV ONE (16:01)
[2022-03-27] MEDS ORDERED: MIDAZOLAM HCL 2MG/2ML 2ml VIAL (1mg/ml) ONE (16:01)
[2022-03-27] MEDS ORDERED: fentaNYL CITRATE 100 MCG/2 ML VL ONE (16:01)
[2022-03-27] MEDS ORDERED: ANGIOMAX 250 MG VIAL IV ONE (16:01)
[2022-03-27] MEDS ORDERED: SODIUM CHL 0.9% 50 ML ONE (16:01)
[2022-03-27] MEDS ORDERED: EPTIFIBATIDE INJ (2MG/ML) 10ML VIAL IV ONE (16:44)
[2022-03-27 20:00] VITALS: BP 133/65
[2022-03-27] MEDS: ALUM & MAG HYDROX-SIMETH LIQ(MAALOX) 30 ML PO PRN (21:54)
[2022-03-27] MEDS: ATORVASTATIN 20 MG TAB PO SCH (21:54)
[2022-03-27 22:00] VITALS: BP 146/70
[2022-03-28 05:00] VITALS: BP 134/78
[2022-03-28 05:51] LABS: Basophils # (auto) 0.1 10 ^3/uL (0-0.2); Basophils % (auto) 0.7 % (0.0-2.0); Eosinophils # (auto) 0.6 10 ^3/uL (0-0.8); Eosinophils % (auto) 5.3 % (0.0-7.0); Hemoglobin 14.6 g/dL (13.5-17.5); Lymphocytes # (auto) 2.7 10 ^3/uL (0.4-5.4); Lymphocytes % (auto) 25.8 % (10.0-50.0); Mean Corpuscular Hemoglobin 30.2 pg (28.0-32.0); Mean Corpuscular Hgb Conc. 33.9 g/dL (32.0-36.0); Neutrophils # (auto) 6.3 10 ^3/uL (1.6-8.6); Neutrophils % (auto) 59.2 % (37.0-80.0); Red Blood Cells 4.83 10^6/uL (4.5-5.90); Red Cell Distribution Width 13.6 % (11.8-14.3); White Blood Cell 10.6 10^3/uL (4.4-10.8)
[2022-03-28 06:13] LABS: BUN/Creatinine Ratio 16.8; Calcium 8.6 mg/dL (8.5-10.1); Potassium 4.4 mmol/L (3.5-5.1)
[2022-03-28 08:00] VITALS: BP 158/60
[2022-03-28] MEDS: ASPirin-EC 81 mg tab PO SCH (09:30)
[2022-03-28] MEDS: METOPROLOL TARTRATE 25 MG TAB PO SCH (09:31)
[2022-03-28] MEDS: CLOPIDOGREL BISULFATE 75 MG TAB PO SCH (09:31)
[2022-03-28 12:00] VITALS: BP 128/58
[2022-03-28] MEDS ORDERED: ARTIFICIAL TEARS 15ml EACHEYE PRN (13:15)
[2022-03-28] MEDS ORDERED: MET25T PO (14:52)
[2022-03-28] MEDS ORDERED: CLOP75TA28 PO (14:52)
[2022-03-28] MEDS ORDERED: ATO40T PO (14:52)
[2022-03-28 16:00] VITALS: BP 141/65
[2022-03-28 16:44] VITALS: BP 126/82
== END 2022-03-28 18:24 | disposition home or self-care (01) | DRG 246 ==
LOC: ER 13:19 → TELE 16:09 → TELE-EAST 21:31
PROVIDERS: ADMIT Family Medicine; ATTEND Internal Medicine
PROC: 027034Z Dilation of Coronary Artery, One Artery with Drug-eluting Intraluminal Device, Percutaneous Approach (ICD-10-PCS; principal; 2022-03-27)
PROC: 4A023N7 Measurement of Cardiac Sampling and Pressure, Left Heart, Percutaneous Approach (ICD-10-PCS; 2022-03-27)
PROC: B2111ZZ Fluoroscopy of Multiple Coronary Arteries using Low Osmolar Contrast (ICD-10-PCS; 2022-03-27)
PROC: B21F1ZZ Fluoroscopy of Other Bypass Graft using Low Osmolar Contrast (ICD-10-PCS; 2022-03-27)
DX: I25.10 Atherosclerotic heart disease of native coronary artery without angina pectoris (principal); I50.43 Acute on chronic combined systolic (congestive) and diastolic (congestive) heart failure; E66.9 Obesity, unspecified; J45.909 Unspecified asthma, uncomplicated; M94.0 Chondrocostal junction syndrome [Tietze]; Z68.31 Body mass index [BMI] 31.0-31.9, adult; Z20.822 Contact with and (suspected) exposure to COVID-19; E78.00 Pure hypercholesterolemia, unspecified; I11.0 Hypertensive heart disease with heart failure; E11.40 Type 2 diabetes mellitus with diabetic neuropathy, unspecified; Z79.84 Long term (current) use of oral hypoglycemic drugs
CPT/HCPCS: 36415; 71045; 80048; 80053; 80061; 81001; 82962; 83036; 83735; 83880; 84443; 84484; 85025; 85610; 85730; 92928; 93005; 93306; 93459; 99152; 99153; C1874; G0378; J2001; J2250

== ENCOUNTER → 2022-07-15 | Outpatient (CLI) | payer MEDICAID ==
[~2022-07-15] MED LIST changes: -ALL300T PO; -ALLO100T PO; +ALLO300T2 PO; -AMOX500T86 PO; -ASCO500T11 PO; +ASCO500T5 PO; +ATO40T PO; +CLOP75TA70 PO; +COLC1CAP PO; -COLCPOW2 PO; -CROM4SOL6 EACHEYE; +CYAN100T7 PO; -DICL1GEL26 TD; -ECON1CRE6 EX; +FAMO-12 PO; -GABA300C10; +IBUP800T27 PO; +IOHEXOL 350 MG/ML 100ML IJ ONE; +ISOS1TAB28 PO; +KETO0.0233 EACHEYE; -LISI-275 PO; +LISI-716 PO; -LORA-622 PO; +MET25T PO; -METF-370 PO; -PANT40TA2 PO; -PRAV20TA3 PO; -PROM25TA5 PO; -RANO1000 PO; -TRIA0.1P17 TOP; +VITA100072 PO; +ZINC50TA7 PO
[2022-07-15 11:00] VITALS: BP 108/57
[2022-07-15 11:32] VITALS: BP 121/58
[2022-07-15 12:55] LABS: BUN/Creatinine Ratio 14.6; Calcium 8.5 mg/dL (8.5-10.1)
[2022-07-15 13:01] LABS: Basophils # (auto) 0 10 ^3/uL (0-0.2); Basophils % (auto) 0.5 % (0.0-2.0); Eosinophils # (auto) 0.6 10 ^3/uL (0-0.8); Eosinophils % (auto) 7.6 % (0.0-7.0); Hematocrit 38.8 % (41.0-53.0); Hemoglobin 13.2 g/dL (13.5-17.5); Lymphocytes # (auto) 2.5 10 ^3/uL (0.4-5.4); Lymphocytes % (auto) 31.4 % (10.0-50.0); Mean Corpuscular Hemoglobin 30.7 pg (28.0-32.0); Mean Corpuscular Volume 90.4 fL (80.0-100.0); Monocytes # (auto) 0.7 10 ^3/uL (0-1.3); Monocytes % (auto) 8.7 % (0.0-12.0); Neutrophils # (auto) 4.1 10 ^3/uL (1.6-8.6); Neutrophils % (auto) 51.8 % (37.0-80.0); Red Cell Distribution Width 14.1 % (11.8-14.3); White Blood Cell 7.9 10^3/uL (4.4-10.8)
[2022-07-15 13:04] LABS: INR 1.04 (0.9-1.15); Partial Thromboplastin Time 29.6 sec (24.6-33.4)
== END | disposition home or self-care (01) ==
LOC: Rad HDHVI 10:58
PROVIDERS: ATTEND Internal Medicine Cardiovascular Disease
DX: Z01.818 Encounter for other preprocedural examination (principal); I70.0 Atherosclerosis of aorta; I25.5 Ischemic cardiomyopathy; I20.0 Unstable angina; R06.02 Shortness of breath; M47.814 Spondylosis without myelopathy or radiculopathy, thoracic region; Z95.1 Presence of aortocoronary bypass graft
CPT/HCPCS: 36415; 71046; 80048; 85025; 85610; 85730; 93005; G0463

== ENCOUNTER 2022-07-16 09:41 | Day surgery (SDC) | payer OTHER, MEDICAID ==
[~2022-07-16] VITALS: Ht 175.3 cm; Wt 97.5 kg
[2022-07-16] VITALS (8 sets, daily range): BP systolic 121–153; BP diastolic 59–83
[~2022-07-16 09:41] MED LIST changes: -CLOP75TA28 PO; -IOHEXOL 350 MG/ML 100ML IJ ONE; -MET25T PO; -OXYC325T14 PO
[2022-07-16] MEDS ORDERED: ANGIOMAX 250 MG VIAL IV ONE (12:50)
[2022-07-16] MEDS ORDERED: fentaNYL CITRATE 100 MCG/2 ML VL ONE (12:50)
[2022-07-16] MEDS ORDERED: SODIUM CHL 0.9% 0 ML ONE (12:50)
[2022-07-16] MEDS ORDERED: MIDAZOLAM HCL 2MG/2ML 2ml VIAL (1mg/ml) ONE (12:50)
[2022-07-16] MEDS ORDERED: ATROPINE SULF 1 MG/10ml SYR ONE (13:07)
== END 2022-07-16 15:55 | disposition home or self-care (01) ==
LOC: CATH 09:41
PROVIDERS: ATTEND Internal Medicine Cardiovascular Disease
DX: I25.10 Atherosclerotic heart disease of native coronary artery without angina pectoris (principal); I25.810 Atherosclerosis of coronary artery bypass graft(s) without angina pectoris; Z95.1 Presence of aortocoronary bypass graft; R07.89 Other chest pain; E11.40 Type 2 diabetes mellitus with diabetic neuropathy, unspecified; E78.5 Hyperlipidemia, unspecified; I10 Essential (primary) hypertension; Z95.5 Presence of coronary angioplasty implant and graft; Z98.890 Other specified postprocedural states; Z88.7 Allergy status to serum and vaccine; Z79.899 Other long term (current) drug therapy; Z20.822 Contact with and (suspected) exposure to COVID-19
CPT/HCPCS: 93459; C1760; C1769; C1894; J2250; J3010; J7030; U0003; 99152; 99153

== ENCOUNTER 2022-11-01 19:20 | Emergency (ER) | payer OTHER, MEDICAID ==
[~2022-11-01] VITALS: Ht 188 cm; Wt 118.0 kg
[2022-11-01] MEDS ORDERED: ONDANSETRON ODT 4 MG TAB PO ONE (23:45)
[2022-11-01] MEDS ORDERED: MORPHINE SULFATE INJ 2 MG/ml SYRG IM ONE (23:45)
[2022-11-01 23:52] VITALS: BP 166/61
== END 2022-11-02 00:18 | disposition home or self-care (01) ==
LOC: EDBD 19:20 → ER 19:24
DX: S39.012A Strain of muscle, fascia and tendon of lower back, initial encounter (principal); J45.909 Unspecified asthma, uncomplicated; E11.9 Type 2 diabetes mellitus without complications; E78.5 Hyperlipidemia, unspecified; I10 Essential (primary) hypertension; V43.52XA Car driver injured in collision with other type car in traffic accident, initial encounter; Y93.89 Activity, other specified; Y92.410 Unspecified street and highway as the place of occurrence of the external cause; Y99.8 Other external cause status
CPT/HCPCS: 72131; 93005; 96372; 99285; J2270; Q0162

== ENCOUNTER → 2022-12-29 | Outpatient (CLI) | payer OTHER | END | disposition home or self-care (01) | LOC: Rad HDHVI 15:48 | PROVIDERS: ATTEND Internal Medicine Cardiovascular Disease | DX: I08.3 Combined rheumatic disorders of mitral, aortic and tricuspid valves (principal); R06.02 Shortness of breath; E78.5 Hyperlipidemia, unspecified | CPT/HCPCS: 93306 ==

== ENCOUNTER → 2023-09-07 | Outpatient (CLI) | payer OTHER ==
[~2023-09-07] MED LIST changes: +IBUP-1456 PO; -IBUP800T27 PO; -LISI-716 PO; +LISI10TA34 PO
== END | disposition home or self-care (01) ==
LOC: Rad HDHVI 15:57
PROVIDERS: ATTEND Internal Medicine Cardiovascular Disease
DX: I08.8 Other rheumatic multiple valve diseases (principal); I10 Essential (primary) hypertension
CPT/HCPCS: 93306

== ENCOUNTER → 2023-09-08 | Outpatient (CLI) | payer OTHER ==
[~2023-09-08] VITALS: Ht 175.3 cm; Wt 99.8 kg
[~2023-09-08] MED LIST changes: +ADENOSINE 84 MG in GIVE UN-DILUTED 0 ML IV ONE; +ADENOSINE 90 MG/30 ML INJ IV ONE
== END | disposition home or self-care (01) ==
LOC: Rad HDHVI 13:28
PROVIDERS: ATTEND Internal Medicine Cardiovascular Disease
DX: I11.0 Hypertensive heart disease with heart failure (principal); I50.33 Acute on chronic diastolic (congestive) heart failure; I25.10 Atherosclerotic heart disease of native coronary artery without angina pectoris; I25.5 Ischemic cardiomyopathy; E78.00 Pure hypercholesterolemia, unspecified; Z82.49 Family history of ischemic heart disease and other diseases of the circulatory system
CPT/HCPCS: 78452; 93005; 96374; 96375; A9500; J0153

== ENCOUNTER 2023-12-07 16:12 | Emergency (ER) | payer OTHER, MEDICAID ==
[~2023-12-07] VITALS: Ht 175.3 cm; Wt 107.6 kg
[~2023-12-07 16:12] MED LIST changes: -ADENOSINE 84 MG in GIVE UN-DILUTED 0 ML IV ONE; -ADENOSINE 90 MG/30 ML INJ IV ONE
[2023-12-07 16:14] VITALS: BP 154/67; RESP 25; O2SAT 94
[2023-12-07 16:38] LABS: Basophils # (auto) 0.1 10 ^3/uL (0-0.2); Basophils % (auto) 0.8 % (0.0-2.0); Eosinophils # (auto) 0.8 10 ^3/uL (0-0.8); Eosinophils % (auto) 8.3 % (0.0-7.0); Hematocrit 40.4 % (41.0-53.0); Hemoglobin 13.8 g/dL (13.5-17.5); Lymphocytes # (auto) 2.9 10 ^3/uL (0.4-5.4); Lymphocytes % (auto) 28.7 % (10.0-50.0); Mean Corpuscular Hemoglobin 30.5 pg (28.0-32.0); Mean Corpuscular Hgb Conc. 34.2 g/dL (32.0-36.0); Mean Corpuscular Volume 89.1 fL (80.0-100.0); Monocytes # (auto) 0.8 10 ^3/uL (0-1.3); Monocytes % (auto) 8.1 % (0.0-12.0); Neutrophils # (auto) 5.5 10 ^3/uL (1.6-8.6); Neutrophils % (auto) 54.1 % (37.0-80.0); Red Blood Cells 4.54 10^6/uL (4.5-5.90); Red Cell Distribution Width 14.3 % (11.8-14.3); White Blood Cell 10.1 10^3/uL (4.4-10.8)
[2023-12-07 17:06] LABS: Alanine Aminotransferase 37 U/L (7-40); Albumin 4.5 g/dL (3.2-4.8); Alkaline Phosphatase 91 U/L (46-116); Anion Gap 10 (5-15); Aspartate Aminotransferase 26 U/L (13-40); BUN/Creatinine Ratio 13.8 (10.0-20.0); Bilirubin, Total 0.5 mg/dL (0.2-1.0); Blood Urea Nitrogen 16 mg/dL (9-23); Calcium 9.8 mg/dL (8.7-10.4); Carbon Dioxide 27 mmol/L (20-30); Chloride 102 mmol/L (98-107); Glucose 132 mg/dL (74-106); Potassium 3.9 mmol/L (3.5-5.1); Sodium 139 mmol/L (136-145); Total Protein 6.9 g/dL (5.7-8.2)
[2023-12-07] MEDS ORDERED: NITROGLYCERIN 0.4 MG SL TAB SL ONE (17:30)
[2023-12-07] MEDS ORDERED: ASPirin 325 MG TAB PO ONE (17:30)
[2023-12-07 17:56] VITALS: PULSE 80
== END 2023-12-07 19:05 | disposition left against medical advice (07) ==
LOC: ER 16:12
DX: R07.89 Other chest pain (principal); I10 Essential (primary) hypertension; I25.2 Old myocardial infarction; I25.10 Atherosclerotic heart disease of native coronary artery without angina pectoris; E11.9 Type 2 diabetes mellitus without complications; J45.909 Unspecified asthma, uncomplicated; E78.5 Hyperlipidemia, unspecified; M10.9 Gout, unspecified; Z90.89 Acquired absence of other organs; Z95.1 Presence of aortocoronary bypass graft; Z79.82 Long term (current) use of aspirin; Z79.899 Other long term (current) drug therapy; Z88.8 Allergy status to other drugs, medicaments and biological substances
CPT/HCPCS: 36415; 71045; 80053; 83880; 84484; 85025; 85379; 93005

== ENCOUNTER 2023-12-30 08:11 | Day surgery (SDC) | payer OTHER, MEDICAID ==
[2023-12-29 11:33] LABS: Basophils # (auto) 0.1 10 ^3/uL (0-0.2); Basophils % (auto) 0.8 % (0.0-2.0); Eosinophils # (auto) 0.7 10 ^3/uL (0-0.8); Eosinophils % (auto) 7.1 % (0.0-7.0); Hematocrit 41.8 % (41.0-53.0); Hemoglobin 13.9 g/dL (13.5-17.5); Lymphocytes # (auto) 2.8 10 ^3/uL (0.4-5.4); Lymphocytes % (auto) 28.9 % (10.0-50.0); Mean Corpuscular Hgb Conc. 33.3 g/dL (32.0-36.0); Mean Corpuscular Volume 90.1 fL (80.0-100.0); Monocytes # (auto) 0.8 10 ^3/uL (0-1.3); Monocytes % (auto) 8.4 % (0.0-12.0); Neutrophils # (auto) 5.4 10 ^3/uL (1.6-8.6); Neutrophils % (auto) 54.8 % (37.0-80.0); Nucleated Red Blood Cells % 0.1 %; Red Blood Cells 4.64 10^6/uL (4.5-5.90); Red Cell Distribution Width 14.4 % (11.8-14.3); White Blood Cell 9.8 10^3/uL (4.4-10.8)
[2023-12-29 11:59] LABS: INR 1.06 (0.9-1.15); Partial Thromboplastin Time 28.7 SEC (24.5-34.5); Prothrombin Time 11.1 sec (9.3-11.8)
[2023-12-29 12:08] LABS: Chloride 106 mmol/L (98-107); Potassium 4.3 mmol/L (3.5-5.1); Sodium 139 mmol/L (136-145)
[2023-12-29 12:09] LABS: Anion Gap 5 (5-15); Carbon Dioxide 28 mmol/L (20-30)
[2023-12-29 12:10] LABS: Calcium 9.5 mg/dL (8.5-10.1)
[2023-12-29 12:14] LABS: BUN/Creatinine Ratio 10.2 (10.0-20.0); Blood Urea Nitrogen 10 mg/dL (9-23); Glucose 118 mg/dL (74-106)
[2023-12-30] VITALS (8 sets, daily range): BP systolic 112–134; BP diastolic 60–77; PULSE 51–77; RESP 12–19; O2SAT 90–98
[~2023-12-30] VITALS: Ht 175.3 cm; Wt 100.7 kg
[~2023-12-30 08:11] MED LIST changes: -ATO40T PO; +ATOR-507 PO; +BUDE1AER5 IN; +FLUT50SP28; +HYDR-4798 PO; -IBUP-1456 PO; +LORA-622 PO; +NITR0.4S29 SL; +SILD100T PO; +TIOT17SP IN; +TRIA0.1P2 TOP; +VITA200T2 PO
[2023-12-30] MEDS ORDERED: LIDOCAINE 2%HCL (LOCAL ANESTH.) INJ 20ML MDV ONE (12:24)
[2023-12-30] MEDS ORDERED: SODIUM CHL 0.9% 50 ML ONE (12:24)
[2023-12-30] MEDS ORDERED: fentaNYL CITRATE 100 MCG/2 ML VL ONE (12:24)
[2023-12-30] MEDS ORDERED: ANGIOMAX 250 MG VIAL IV ONE (12:24)
[2023-12-30] MEDS ORDERED: MIDAZOLAM HCL 2MG/2ML 2ml VIAL (1mg/ml) ONE (12:24)
[2023-12-30] MEDS ORDERED: IOHEXOL 350 MG/ML 100ML IJ ONE ×2 (12:46→12:58)
[2023-12-30] MEDS ORDERED: CLOPIDOGREL BISULFATE 75 MG TAB ONE ×3 (13:22→13:37)
[2023-12-30] MEDS ORDERED: EPTIFIBATIDE INJ (2MG/ML) 10ML VIAL IV ONE (13:27)
[2023-12-30] MEDS ORDERED: HYDROmorphone HCL 2 MG/ML VL/or syr ONE (13:28)
== END 2023-12-30 15:50 | disposition home or self-care (01) ==
LOC: CATH 08:11
PROVIDERS: ATTEND Internal Medicine Cardiovascular Disease
DX: R07.9 Chest pain, unspecified (principal); R06.09 Other forms of dyspnea; I10 Essential (primary) hypertension; R06.02 Shortness of breath; I25.119 Atherosclerotic heart disease of native coronary artery with unspecified angina pectoris; G89.4 Chronic pain syndrome; J44.9 Chronic obstructive pulmonary disease, unspecified; E78.5 Hyperlipidemia, unspecified; Q87.89 Other specified congenital malformation syndromes, not elsewhere classified; F41.8 Other specified anxiety disorders; Z79.82 Long term (current) use of aspirin; Z79.899 Other long term (current) drug therapy; Z95.1 Presence of aortocoronary bypass graft; Z95.5 Presence of coronary angioplasty implant and graft; Z86.16 Personal history of COVID-19; Z98.890 Other specified postprocedural states; Z82.3 Family history of stroke; Z82.49 Family history of ischemic heart disease and other diseases of the circulatory system; Z81.8 Family history of other mental and behavioral disorders; Z83.3 Family history of diabetes mellitus; Z82.69 Family history of other diseases of the musculoskeletal system and connective tissue
CPT/HCPCS: 36415; 75716; 80048; 85025; 85610; 85730; 92972; 93459; C1725; C1760; C1769; C1874; C1884; C1894; C9604; J0583; J1170; J1327; J1644; J2250; J3010; Q9967; 99152; 99153

== ENCOUNTER → 2024-07-26 | Outpatient (CLI) | payer OTHER | END | disposition home or self-care (01) | LOC: Rad HDHVI 15:40 | PROVIDERS: ATTEND Internal Medicine Cardiovascular Disease | DX: R00.2 Palpitations (principal); I25.5 Ischemic cardiomyopathy | CPT/HCPCS: 93306 ==

== ENCOUNTER 2025-03-13 22:50 | Inpatient (IN) | payer OTHER, MEDICAID ==
[~2025-03-13] VITALS: Ht 175.3 cm; Wt 101.4 kg
[2025-03-13] MEDS: ASPirin 81 mg TAB PO ONE (23:36)
[2025-03-13] MEDS: ONDANSETRON HCL 4 MG/2 ML VIAL IV ONE (23:37)
[2025-03-13 23:42] VITALS: PULSE 81; RESP 13; O2SAT 96
[2025-03-13] MEDS: NITROGLYCERIN 0.4 MG SL TAB SL ONE (23:42)
[2025-03-13] MEDS: MORPHINE SULFATE 4 MG/ML SYR/VIAL IV ONE (23:43)
[2025-03-13 23:53] LABS: Basophils # (auto) 0.1 10 ^3/uL (0-0.2); Basophils % (auto) 0.7 % (0.0-2.0); Eosinophils # (auto) 0.2 10 ^3/uL (0-0.8); Eosinophils % (auto) 1.8 % (0.0-7.0); Hematocrit 39.3 % (41.0-53.0); Hemoglobin 13.3 g/dL (13.5-17.5); Lymphocytes # (auto) 3.1 10 ^3/uL (0.4-5.4); Lymphocytes % (auto) 27.1 % (10.0-50.0); Mean Corpuscular Hemoglobin 30.4 pg (28.0-32.0); Mean Corpuscular Volume 89.3 fL (80.0-100.0); Monocytes % (auto) 8.9 % (0.0-12.0); Neutrophils % (auto) 61.5 % (37.0-80.0); Platelet Count (auto) 229 10^3/uL (140-450); Red Blood Cells 4.39 10^6/uL (4.5-5.90); White Blood Cell 11.3 10^3/uL (4.4-10.8)
[2025-03-14] VITALS (10 sets, daily range): BP systolic 122–148; BP diastolic 12–63; PULSE 61–65; RESP 12–18; TEMP 97.4; O2SAT 93–100
--- NOTE | 2025-03-14 00:02 | DVH ---
CHEST RADIOGRAPH Indication: chest pain Technique: Single frontal view of the chest was obtained COMPARISON: XY CHEST PORTABLE on DOS: 12/07/23, CHEST PORTABLE on DOS: 03/25/22, CXRP on DOS: 03/25/22, CHEST PORTABLE on DOS: 09/23/20 FINDINGS: Lines and Tubes: None Lungs: Clear Pleura: No effusion. No pneumothorax. Cardiomediastinal contours: Cardiomegaly. Median sternotomy sutures and surgical clips. Bones: Unremarkable IMPRESSION: 1. Cardiomegaly.
[2025-03-14 00:06] LABS: INR 1.03 (0.9-1.15); Partial Thromboplastin Time 25.9 SEC (24.5-34.5); Prothrombin Time 10.9 sec (9.3-11.8)
[2025-03-14 00:14] LABS: Alanine Aminotransferase 25 U/L (7-40); Albumin 4.1 g/dL (3.2-4.8); Alkaline Phosphatase 97 U/L (46-116); Anion Gap 11 (5-15); Aspartate Aminotransferase 16 U/L (<34); BUN/Creatinine Ratio 12.6 (10.0-20.0); Bilirubin, Total 0.4 mg/dL (0.2-1.0); Blood Urea Nitrogen 14 mg/dL (9-23); Calcium 9.8 mg/dL (8.7-10.4); Carbon Dioxide 24 mmol/L (20-31); Potassium 3.7 mmol/L (3.5-5.1); Sodium 143 mmol/L (136-145); Total Protein 6.8 g/dL (5.7-8.2)
[2025-03-14 00:15] LABS: Chloride 108 mmol/L (98-107); Glucose 301 mg/dL (74-106)
--- NOTE | 2025-03-14 00:59 | ED.PDOC ---
History of Present Illness HPI Comments 69 y/o obese M, with an extensive cardiac history, is BIBA for c/o 10/10 tightening, left sided chest pain, that radiates to his left arm, with associated shortness of breath, lightheadedness, headache, bilateral eye pain, and nausea. Symptoms are reported to have began, suddenly and unprovoked, this evening. Pain is described as if an 'elephant' is sitting on the patient's chest, feeling similar to LA's he has had in the past, and showing no relief or improvement with at-home 324mg ASA and 0.4mg NTG use. On scene, vitals were noted to have within normal limits and stable, with exception of being hypertensive at a systolic pressure in the 160's range. Upon arrival to ED, patient is stated to have improved to a 7/10 following an additional 0.4mg NTG administration en route. Patient denies having any palpitations, cough, congestion, fever, chills, vomiting, or further associated symptoms. 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 He is on a blood thinner, currently. Past Medical History: Angina, Asthma, CAD, DM, Gout, High Lipids, HTN, LA, COPD Past Surgical History: CABG, Tonsillectomy, PTCA Chief Complaint: Chest Pain Time Seen by MD: 23:15 Primary Care Provider: EDNA Reviewed Notes: Nurses Notes, Brush Stainer Notes, Medications, Allergies Allergies: Coded Allergies: COVID-19 (mRNA) Vaccine (Verified Allergy, Intermediate, SKIN RASH, BODY ACHES, MALAISE, 07/15/22) Home Meds Reported Medications Hydrocodone-Acetaminophen (Hydrocodone Bitartrate/AC 10-325 mg) 1 Tab Tab, 1 TAB PO Q12HP PRN for PAIN SCALE 7 THRU 10, TAB 12/29/23 Loratadine (Claritin) 10 Mg Tab, 1 TAB PO DAILY for ALLERGIES, #30 TAB 5 Refills 12/29/23 Tiotropium [place] Monohydrate (Spiriva Respimat) 2.5 Mcg/Act Spr, 2.5 MCG IN BID for COPD, SPRAY 12/29/23 Triamcinolone Acetonide (Triamcinolone Acetonide) 0.1 % Pst, 1 APPLIC TOP BID for ALLERGIC INFLAMMATION, APPLIC 12/29/23 Fluticasone Propionate (Nasal) (Allergy Relief) 50 Mcg/Act Spr, 50 MCG NA BID for ALLERGIES, SPRAY 12/29/23 Budesonide-Formoterol Fumarate (Budesonide/Formoterol Fum 80-4.5 Mcg/Act) 1 Aer Aer, 1 AER IN BID for COPD, AER 12/29/23 Sildenafil Citrate (Viagra) 100 Mg Tab, 1 TAB PO DAILYP, #6 TAB 11 Refills 12/29/23 Nitroglycerin (NTROSTAT SUBLINGUAL) 0.4 Mg Sl, 0.4 MG SL PRN for CHEST PAIN, TAB *MAY REPEAT EVERY 5 MINUTES X 3 TOTAL IF NO RELIEF, INITIATE ANALGESIC THERAPY. NOTIFY PHYSICIAN *Do not crush. 12/29/23 Alpha Tocopheryl Acid Succinat (VITAMIN E) 200 Unit Tab, 200 UNIT PO DAILY for S UPPLEMENT, TAB 12/29/23 Isosorbide Mononitrate (Isosorbide Mononitrate Er) 30 Mg Tab, 30 MG PO BID, MG 12/29/23 Zinc Gluconate (Zinc) 50 Mg Tab, 1 TAB PO DAILY for SUPPLEMENT 07/15/22 Vitamin E (E1000) 1,000 Unit Cap, 1 CAP PO DAILY for SUPPLEMENT 07/15/22 Cyanocobalamin (Vitamin B12) 100 Mcg Tab, 1 TAB PO DAILY for SUPPLEMENT 07/15/22 Ascorbic Acid (Vitamin C) 500 Mg Tab, 1 TAB PO DAILY for SUPPLEMENT 07/15/22 Albuterol Sulfate (VENTOLIN MDI) 90 Mcg Ih, 1 PUFF IN Q4HP PRN for SHORTNESS OF BREATH 07/15/22 Ketotifen Fumarate (Ophth) (Zaditor) 0.025 % Derek, 1 DROP EACHEYE BID for DRY EYES 07/15/22 Metoprolol Tartrate (Metoprolol Tartrate) 25 Mg Tab, 1 TAB PO BID for HYPERTENSION 07/15/22 Famotidine (Famotidine) 20 Mg Tab, 1 TAB PO BID PRN for GERD 07/15/22 Baclofen (Baclofen) 10 Mg Tab, 1 TAB PO Q12HR PRN for BACK PAIN/SPASMS 07/15/22 Clopidogrel Bisulfate (CLOPIDOGREL) 75 Mg Tab, 1 TAB PO DAILY for CAD 07/15/22 Lisinopril (Lisinopril) 10 Mg Tab, 1 TAB PO QPM for HYPERTENSION 07/15/22 Colchicine (Colchicine) 0.6 Mg Cap, 2 CAP PO BID PRN for GOUT FLARE-UP 07/15/22 Atorvastatin Calcium (Lipitor) 40 Mg Tab, 1 TAB PO QPM for HIGH CHOLESTEROL 07/15/22 Allopurinol (Allopurinol) 300 Mg Tab, 1 TAB PO QPM for GOUT 07/15/22 Cholecalciferol (VITAMIN D3) 2,000 Unit Tab, 1 TAB PO DAILY for SUPPLEMENT 03/27/22 Aspirin (Aspirin Adult Low Strengt) 81 Mg Chw, 1 TAB PO QPM for CAD 12/07/11 Mode of Arrival: EMS Past Medical History PAST MEDICAL HISTORY: Angina, Asthma, CAD, DM, Gout, High Lipids, HTN, LA Surgical History: CABG, PTCA, Tonsillectomy Family History Family History: No family hx of DM, No family hx of Heart april, No family hx of HTN, No family hx of Stroke Social History Smoker: Non-Smoker Alcohol: Occasionally Drugs: Denies Drug Use Lives In: Home All Other Systems: Reviewed and Negative (Comprehensive systems review obtained and negative except for what is stated in the HPI.) Physical Exam General Appearance: Mild Distress, Obese HEENT: Normal ENT Inspection, Pharynx Normal, TMs Normal Neck: Full Range of Motion, Non-Tender, Normal, Normal Inspection Respiratory: Chest Non-Tender, Lungs Clear, No Accessory Muscle Use, No Respiratory Distress, Normal Breath Sounds Cardiovascular: No Edema, No JVD, No Murmur, No Gallop, Normal Peripheral Pulses, Regular Rate/Rhythm Breast Exam: Deferred Gastrointestinal: No Organomegaly, Non Tender, No Pulsatile Mass, Normal Bowel Sounds, Soft Genitalia: Deferred Pelvic: Deferred Rectal: Deferred Extremities: No calf tenderness, Normal capillary refill, Normal inspection, Normal range of motion, Non-tender, No pedal edema Musculoskeletal : Apperance: Normal Neurologic: Alert, button sewer II-XII nml as Tested, No Motor Deficits, Normal Affect, Normal Mood, No Sensory Deficits Cerebellar Function: Normal Reflexes: Normal Skin: Dry, Normal Color, Warm Lymphatic: No Adenopathy Was a procedure done? Was a procedure done?: No EKG EKG : Pulse Rate (adult): 85 [place]: Normal Cardiac Rhythm: NSR Block: None Hypertrophy: LVH ST: Old, Inf, Infarct Differential Dx Considerations may include: LA, PE, ACS, URI, PNA, viral syndrome, anxiety, angina, costochondritis, pe ricarditis, among others X-Ray, Labs, Meds, VS Vital Signs Date Time Temp Pulse Resp B/P (MAP) Pulse Ox O2 Delivery O2 Flow Rate FiO2 03/14/25 01:05 74 12 144/67 03/14/25 00:59 85 03/14/25 00:14 148/65 03/14/25 00:00 76 03/13/25 23:43 87 20 157/62 03/13/25 23:42 81 13 96 Room Air* 0 21 03/13/25 23:42 98.7 81 13 157/62 (93) 96 98.7 03/13/25 23:42 157/62 03/13/25 22:56 98.6 94 16 173/90 (117) 96 98.6 03/13/25 22:52 85 Lab Test 03/14/25 00:43 03/13/25 23:40 Range/Units Troponin I High Sensitivity Pending 7 </=54 ng/L White Blood Count 11.3 H 4.4-10.8 10^3/uL Red Blood Count 4.39 L 4.5-5.90 10^6/uL Hemoglobin 13.3 L 13.5-17.5 g/dL Hematocrit 39.3 L 41.0-53.0 % Mean Corpuscular Volume 89.3 80.0-100.0 fL Mean Corpuscular Hemoglobin 30.4 28.0-32.0 pg Mean Corpuscular Hemoglobin Concent 34.0 32.0-36.0 g/dL Red Cell Distribution Width 14.0 11.8-14.3 % Platelet Count 229 140-450 10^3/uL Mean Platelet Volume 7.5 6.9-10.8 fL Neutrophils (%) (Auto) 61.5 37.0-80.0 % Lymphocytes (%) (Auto) 27.1 10.0-50.0 % Monocytes (%) (Auto) 8.9 0.0-12.0 % Eosinophils (%) (Auto) 1.8 0.0-7.0 % Basophils (%) (Auto) 0.7 0.0-2.0 % Neutrophils # (Auto) 7.0 1.6-8.6 10 ^3/uL Lymphocytes # (Auto) 3.1 0.4-5.4 10 ^3/uL Monocytes # (Auto) 1.0 0-1.3 10 ^3/uL Eosinophils # (Auto) 0.2 0-0.8 10 ^3/uL Basophils # (Auto) 0.1 0-0.2 10 ^3/uL Nucleated Red Blood Cells 0.0 % Prothrombin Time 10.9 9.3-11.8 sec Prothrombin Time INR 1.03 0.9-1.15 Activated Partial Thromboplast Time 25.9 24.5-34.5 SEC Sodium Level 143 136-145 mmol/L Potassium Level 3.7 3.5-5.1 mmol/L Chloride Level 108 H 98-107 mmol/L Carbon Dioxide Level 24 20-31 mmol/L Anion Gap 11 5-15 Blood Urea Nitrogen 14 9-23 mg/dL Creatinine 1.11 0.700-1.30 mg/dL Glomerular Filtration Rate Calc 72 >90 mL/min BUN/Creatinine Ratio 12.6 10.0-20.0 Serum Glucose 301 H 74-106 mg/dL Calcium Level 9.8 8.7-10.4 mg/dL Total Bilirubin 0.4 0.2-1.0 mg/dL Aspartate Amino Transferase (AST) 16 <34 U/L Alanine Aminotransferase (ALT) 25 7-40 U/L Alkaline Phosphatase 97 46-116 U/L B-Type Natriuretic Peptide 59.38 0-100 pg/mL Total Protein 6.8 5.7-8.2 g/dL Albumin 4.1 3.2-4.8 g/dL Current Medications Medications (Trade) Dose Ordered Sig/Hernandez Route Start Time Stop Time Status Last Admin Ondansetron HCl (Zofran) 4 mg ONCE ONCE IV 03/13/25 23:30 03/13/25 23:31 DC 03/13/25 23:37 Morphine Sulfate 4 mg ONCE ONCE IV 03/13/25 23:30 03/13/25 23:31 DC 03/13/25 23:43 Nitroglycerin (Ntrostat Sublingual) 0.4 mg ONCE ONCE SL 03/13/25 23:30 03/13/25 23:31 DC 03/13/25 23:42 [facility] [id number] [place] [id number] Ph: [phone] DIAGNOSTIC IMAGING Diagnostic Imaging Report : [id number] Signed PATIENT: RUBÉN ATKINSON ACCT: [id number] UNIT: [id number] : 1955 LOC: ER ROOM / BED: / AGE / SEX: 69 / M ADM STATUS: REG ER SERVICE 16 ORDERING PHYSICIAN: JUSTIN DELCID MD PROCEDURE(s): CXRP - CHEST PORTABLE REASON: chest pain ORDER NUMBER(s): [id number], ACCESSION NUMBER(s): [id number] CHEST RADIOGRAPH Indication: chest pain Technique: Single frontal view of the chest was obtained COMPARISON: XY CHEST PORTABLE on DOS: 12/07/23, CHEST PORTABLE on DOS: 03/25/22, CXRP on DOS: 03/25/22, CHEST PORTABLE on DOS: 09/23/20 FINDINGS: Lines and Tubes: None Lungs: Clear Pleura: No effusion. No pneumothorax. Cardiomediastinal contours: Cardiomegaly. Median sternotomy sutures and surgical clips. Bones: Unremarkable IMPRESSION: 1. Cardiomegaly. ATED BY: JOSS REYES MD DICTATED DATE/TIME: 03/13/252358 SIGNED BY: JOSS REYES MD SIGNED DATE/TIME: 03/13/252358 CC: Time of 1ST Reevaluation: 23:45 Reevaluation 1ST: Unchanged Patient Education/Counseling: Diagnosis, Treatment, Other (need for admission ) Family Education/Counseling: No Family Present SEPSIS Sepsis Screen Date sepsis recognized/suspect: Mar 13, 2025 Time Sepsis recognized/suspect: 2255 Recent Procedure: No On Antibiotic Therapy: No Respiratory Rate >20: No Heart Rate >90: Yes Temp<36 C (96.8 F) or >38.3 C: No SBP <90 or MAP <65 mmHG: No New Acute Mental Status Change: No Is the patient on CPAP, BIPAP,: No Orders/Vitals/Labs Physician Orders Troponin-I Hs (03/14/25 00:00) Chest Portable (03/13/25 23:17) Cokeman (03/13/25 23:17) Electrocardigram (03/13/25 23:17) Troponin-I Hs (03/14/25 00:17) Vital Signs Date Time Temp Pulse Resp B/P (MAP) Pulse Ox O2 Delivery O2 Flow Rate FiO2 03/14/25 01:05 74 12 144/67 03/14/25 00:59 85 03/14/25 00:14 148/65 03/14/25 00:00 76 03/13/25 23:43 87 20 157/62 03/13/25 23:42 81 13 96 Room Air* 0 21 03/13/25 23:42 98.7 81 13 157/62 (93) 96 98.7 03/13/25 23:42 157/62 03/13/25 22:56 98.6 94 16 173/90 (117) 96 98.6 03/13/25 22:52 85 Laboratory Tests Test 03/13/25 23:40 White Blood Count 11.3 10^3/uL (4.4-10.8) H Medications Medications Dose Ordered Sig/Hernandez Route Start Time Stop Time Status Last Admin Dose Admin Morphine Sulfate 4 mg ONCE ONCE IV 03/13/25 23:30 03/13/25 23:31 DC 03/13/25 23:43 Nitroglycerin 0.4 mg ONCE ONCE SL 03/13/25 23:30 03/13/25 23:31 DC 03/13/25 23:42 Ondansetron HCl 4 mg ONCE ONCE IV 03/13/25 23:30 03/13/25 23:31 DC 03/13/25 23:37 Departure 1 Departure Time of Disposition: 01:17 Impression: Primary Impression: ACS (acute coronary syndrome) Additional Impression: Type 2 diabetes mellitus with hyperglycemia Disposition: 09 ADMITTED INPATIENT Admit to: Tele Condition: Guarded Comments Chest Pain in 69-year-old Male with CAD Chief Complaint: Left-sided chest pain History of Present Illness: Patient is a 69-year-old male with a significant cardiac history including known coronary artery disease with multiple previous stent placements who presents to the ED with complaints of left-sided chest pain. The pain is described as dull in character and was rated as severe (10/10) at home. EMS was called, and the pain was partially relieved with administration of nitroglycerin en route to the hospital. The patient has a history of hypertension and type 2 diabetes mellitus. On arrival, the patient was found to be hyperglycemic with a blood glucose of 301 mg/dL. Review of Systems: Limited by acute presentation. Cardiovascular: Positive for chest pain, partially relieved with nitroglycerin. Endocrine: Hyperglycemia noted. Medications: Nitroglycerin (administered by EMS) Aspirin (administered in ED) Home medications not fully documented in academic advisement director Past Medical History: Coronary artery disease with multiple stent placements Hypertension Type 2 diabetes mellitus Lab Results: Chemistry Panel: - Glucose: 301 mg/dL (elevated) - Chloride: 108 mmol/L (slightly elevated) - Otherwise unremarkable Cardiac Markers: - Initial Troponin: 7 ng/L (normal) - BNP: 59 pg/mL (normal) Complete Blood Count: - WBC: 11.3 x10^3/?L (slightly elevated) - Hemoglobin: 13 g/dL - Hematocrit: 39% - Platelets: 229 x10^3/?L Imaging and Other Relevant Results: Chest X-ray: Cardiomegaly noted. No acute pulmonary process identified. Medical Decision Making: Summary Statement: 69-year-old male with known CAD and multiple stents presents with acute left-sided chest pain, partially responsive to nitroglycerin, with hyperglycemia and cardiomegaly on chest X-ray. Problem List: 1. Acute chest pain, likely acute coronary syndrome 2. Type 2 diabetes with hyperglycemia 3. Hypertension 4. Known coronary artery disease with previous stent placements Differential Diagnosis: Acute coronary syndrome (unstable angina vs. NSTEMI), stable angina with poor control, coronary artery vasospasm, non-cardiac chest pain, aortic dissection, pulmonary embolism, pericarditis. ED Course: Patient received aspirin and nitroglycerin in the ED. Initial troponin was normal, but given the patient's history and presentation, decision was made to admit for observation and further cardiac workup. Hyperglycemia was noted and will be addressed during admission. Assessment and Plan: 1. Acute Chest Pain/Suspected Acute Coronary Syndrome: - Admit to telemetry unit for observation and serial cardiac enzymes - Continue aspirin therapy - Consider additional antiplatelet therapy based on cardiology recommendations - Plan for cardiac catheterization if troponins become positive or symptoms recur - Continue nitroglycerin as needed for chest pain 2. Type 2 Diabetes with Hyperglycemia: - Check hemoglobin A1c if not recently done - Adjust diabetic medications as needed - Monitor blood glucose levels during admission - Consider endocrinology consultation if persistent hyperglycemia 3. Hypertension: - Continue home antihypertensive medications - Monitor blood pressure during admission 4. Coronary Artery Disease: - Review previous cardiac catheterization reports - Optimize medical therapy - Cardiology consultation Additional Notes: Patient presented with acute chest pain, likely acute coronary syndrome Billing Information: ICD-10: I20.9 - Angina pectoris, unspecified ICD-10: I25.10 - Atherosclerotic heart disease of sam[place] coronary artery without angina pectoris ICD-10: E11.9 - Type 2 diabetes mellitus without complications ICD-10: I10 - Essential (primary) hypertension Critical Care Note Critical Care Time?: Yes (35 min-critical care time only) Critical care comment: ACS Total critical care time: Approximately 36 minutes Due to a high probability of clinically significant, life threatening deterioration, the patient required my highest level of preparedness to intervene emergently and I personally spent this critical care time directly and personally managing the patient. This critical care time included obtaining a history; examining the patient; pulse oximetry; ordering and review of studies; arranging urgent treatment with development of a management plan; evaluation of patient's response to treatment; frequent reassessment; and, discussions with other providers. This critical care time was performed to assess and manage the high probability of imminent, life-threatening deterioration that could result in multi-organ failure. It was exclusive of separately billable procedures and treating other patients. Stability Stability form required: No Heart Score Heart Score: Heart Score Response (Comments) Value History Highly Suspicious 2 EKG Repolarization Disturb 1 Age >65 2 Risk Factors >3 or Hx ASHD 2 Troponin Normal limit 0 Total 7 I personally scribed for JUSTIN DELCID MD ([email or web address]) on 03/14/25 at 00:59. Electronically submitted by Ghulam Easton ([email or web address]). JUSTIN DELCID MD Mar 14, 2025 00:59
[2025-03-14] MEDS: FAMOTIDINE (10MG/ML) 2ML VL IV ONE (02:08)
[2025-03-14] MEDS ORDERED: NITROGLYCERIN 0.4 MG SL TAB SL PRN (02:45)
[2025-03-14] MEDS ORDERED: MORPHINE SULFATE INJ 2 MG/ml SYRG IV PRN (02:45)
--- NOTE | 2025-03-14 03:41 | DVHHPRES ---
History of Present Illness Resident Creating Document: SHANNON [place] RESIDENT History of Present Illness Patient is a 69-year-old male with a past medical history of coronary artery disease, OK, status post CABG, gout, hyperlipidemia, asthma presented to the ED with a chief complaint of acute onset chest pain. Patient reported that on Wednesday he started to feel dizzy, lightheadedness and gradually had mild shortness of breath when he walked and was feeling sick but denied any fever, chills, cough or expectoration, no dysuria. Patient reported he saw his primary bone char operator about 3 weeks ago told him that he has to undergo a stress test and may need an angiogram. Today patient reported sudden onset chest pain on the left side, radiating to the arms, improved on taking nitroglycerin felt someone was sitting on the chest. He described the pain similar to previous episodes when he had an OK. patient came to the hospital for further evaluation. From the records patient underwent multiple coronary angiograms the last 1 in December 2023 when a stent was put to the OM 1 and OM 2 and distal emboli protection device was put, increased LVEDP at 32 mmHg was measured. Patient has since been on dual antiplatelet therapy and afterload and preload reduction. Echo from July 2024 shows LVEF more than 55% with moderate aortic stenosis, aortic insufficiency, mild TR and MR. Past medical history: Per HPI Surgical history: CABG, tonsillectomy, multiple coronary angiograms with multiple stents Social history: Patient denies smoking, alcohol, drug use Home medications: Aspirin, Plavix, atorvastatin 40, metoprolol tartrate 25 b.i.d., isosorbide mononitrate 30 b.i.d., lisinopril 10 mg, Spiriva inhaler Review of Systems Review of Systems Patient seen and examined with the bedside Reports the chest pain had improved after taking the nitroglycerin but still has mild chest pain Denies shortness of breath while in bed, on room air No cough Allergies: Coded Allergies: COVID-19 (mRNA) Vaccine (Verified Allergy, Intermediate, SKIN RASH, BODY ACHES, MALAISE, 07/15/22) Exam Vital Signs Vital Signs Date Time Temp Pulse Resp B/P (MAP) Pulse Ox O2 Delivery O2 Flow Rate FiO2 03/14/25 02:00 65 13 131/75 (93) 91 03/13/25 23:42 Room Air* 0 21 03/13/25 23:42 98.7 98.7 Exam Gen - no pallor, no icterus, no cyanosis, no clubbing, no LAD, no edema . Skin - Patients skin is warm and dry. HEENT - normocephalic, atraumatic, moist mucous membranes. Neck - full ROM, no LAD, jugular venous pulsation seen in the middle 3rd of the SCM Pulmonary - B/L equal breath sounds , no crackles, no wheezing, no stridor. cardiovascular - regular S1,S2 heard, systolic murmur heard in the LLSB, RUSB. peripheral pulses normal radial 2+, pedal 2+. capillary refill normal <2 secs. GI - soft, nontender abdomen. no hepatospleenomegaly. Bowel sounds normoactive Neurological - Patient is A/O X 3 . Bilateral upper extremity strength 5/5, bilateral lower extremity strength 5/5, no facial droop, normal speech, no tremor, no sensory deficiets. Labs/Xrays Labs Test 03/14/25 02:54 03/13/25 23:40 Range/Units White Blood Count 11.3 H 4.4-10.8 10^3/uL Red Blood Count 4.39 L 4.5-5.90 10^6/uL Hemoglobin 13.3 L 13.5-17.5 g/dL Hematocrit 39.3 L 41.0-53.0 % Mean Corpuscular Volume 89.3 80.0-100.0 fL Mean Corpuscular Hemoglobin 30.4 28.0-32.0 pg Mean Corpuscular Hemoglobin Concent 34.0 32.0-36.0 g/dL Red Cell Distribution Width 14.0 11.8-14.3 % Platelet Count 229 140-450 10^3/uL Mean Platelet Volume 7.5 6.9-10.8 fL Neutrophils (%) (Auto) 61.5 37.0-80.0 % Lymphocytes (%) (Auto) 27.1 10.0-50.0 % Monocytes (%) (Auto) 8.9 0.0-12.0 % Eosinophils (%) (Auto) 1.8 0.0-7.0 % Basophils (%) (Auto) 0.7 0.0-2.0 % Neutrophils # (Auto) 7.0 1.6-8.6 10 ^3/uL Lymphocytes # (Auto) 3.1 0.4-5.4 10 ^3/uL Monocytes # (Auto) 1.0 0-1.3 10 ^3/uL Eosinophils # (Auto) 0.2 0-0.8 10 ^3/uL Basophils # (Auto) 0.1 0-0.2 10 ^3/uL Nucleated Red Blood Cells 0.0 % Prothrombin Time 10.9 9.3-11.8 sec Prothrombin Time INR 1.03 0.9-1.15 Activated Partial Thromboplast Time 25.9 24.5-34.5 SEC Sodium Level 143 136-145 mmol/L Potassium Level 3.7 3.5-5.1 mmol/L Chloride Level 108 H 98-107 mmol/L Carbon Dioxide Level 24 20-31 mmol/L Anion Gap 11 5-15 Blood Urea Nitrogen 14 9-23 mg/dL Creatinine 1.11 0.700-1.30 mg/dL Glomerular Filtration Rate Calc 72 >90 mL/min BUN/Creatinine Ratio 12.6 10.0-20.0 Serum Glucose 301 H 74-106 mg/dL Calcium Level 9.8 8.7-10.4 mg/dL Total Bilirubin 0.4 0.2-1.0 mg/dL Aspartate Amino Transferase (AST) 16 <34 U/L Alanine Aminotransferase (ALT) 25 7-40 U/L Alkaline Phosphatase 97 46-116 U/L B-Type Natriuretic Peptide 59.38 0-100 pg/mL Total Protein 6.8 5.7-8.2 g/dL Albumin 4.1 3.2-4.8 g/dL Assessment/Plan Assessment/Plan Acute chest pain, rule out ACS H/o coronary artery disease s/p CABG, multiple PCIs, multiple stents Possible Unstable angina ?heart failure with a preserved ejection fraction Hypertensive heart disease - 12 lead ECG shows sinus rhythm with normal axis, large Q-wave in lead [address] depression less than 1 mm in the 1 and aVL - troponin levels normal - chest x-ray shows cardiomegaly - last echo from July 2024 shows LVEF more than 55%, mild TR, MR, moderate - last PCI done in December 2023 with a 1 VICENTE - consulted cardiology - aspirin and Plavix - Lasix 40 IV daily - isosorbide mononitrate 20 mg b.i.d. PUD prophylaxis: Protonix Goals of care discussed with the patient for over 23 minutes. Full code Time spent: 41 minutes Plan discussed with Dr. Hernandez Plan discussed with: Patient My Orders Orders - SHANNON [place] RESIDENT Procedure Category Date Status Time Admit ADMIT 03/14/25 Transmitted 02:44 Nitroglycerin PHA 03/14/25 Transmitted Sublingual (Ntrostat 02:45 Morphine Sulfate PHA 03/14/25 Transmitted Injection 02:45 Oxygen By Nasal RT 03/14/25 Transmitted Cannula 02:44 Stat Ekg For Chest [facility] 03/14/25 Transmitted Pain 02:44 Notify Md Of Changes [facility] 03/14/25 Transmitted From Base 02:44 Commercial Credit Officer For [facility] 03/14/25 Transmitted 24 Hours 02:44 Emergency Dysrhythmia [facility] 03/14/25 Transmitted Protocol 02:44 Rhythm Strips Once [facility] 03/14/25 Transmitted Every Shift 02:[address] [facility] 03/14/25 Transmitted 10:00 Clopidogrel Bisulfate PHA 03/14/25 Transmitted (Plavix) 10:00 Furosemide Injection PHA 03/14/25 Transmitted (Lasix Injection) 02:45 Furosemide Injection PHA 03/14/25 Transmitted (Lasix Injection) 10:00 Lisinopril Tablet PHA 03/14/25 Transmitted (Zestril Tablet) 22:00 Echo 2d Mode Cardiac US 03/14/25 Transmitted DOP 02:44 Ipratropium Medneb PHA 03/14/25 Transmitted (Atrovent Medneb) 02:45 Levalbuterol Hcl PHA 03/14/25 Transmitted (Xopenex Medneb) 06:00 * Cardiology Consult CONS 03/14/25 Transmitted 02:44 Isosorbide PHA 03/14/25 Verified Mononitrate Tablet 10:00 Rapid Influenza A&B LAB 03/14/25 Transmitted 02:44 Covid19 Antigen [facility] 03/14/25 Verified Pantoprazole Tablet PHA 03/14/25 Verified (Protonix Tablet) 06:00 Cardiac DIET 03/14/25 Verified Diet-2gna,Lofat,Lochol Breakfast Urinalysis LAB 03/14/25 Transmitted 02:44 Orthostatic Vital ED NURSING 03/14/25 Transmitted Signs Date of Service: Mar 14, 2025 Billing Provider: NANNETTE HERNANDEZ MD Common Visit Codes: [id number] INP/OBS CARE (HIGH) Secondary Visit Codes: [id number] CARE PLAN 30 MINUTES SHANNON [place] RESIDENT Mar 14, 2025 03:41
[2025-03-14] MEDS: FUROSEMIDE 40 MG/4 ML VIAL IV ONE (03:47)
[2025-03-14 05:31] LABS: Urine Bacteria None Seen /hpf (None Seen)
[2025-03-14 05:54] LABS: Urine Blood Negative /uL (Negative); Urine Clarity Clear (Clear); Urine Color Colorless (Yellow); Urine Protein, UAD Negative (Negative); Urine Specific Gravity 1.005 (1.001-1.035); Urine Squamous Epithelial Cell None Seen /hpf (<5); Urine Urobilinogen Normal (Negative); Urine WBC < 1 /HPF (0-3)
[2025-03-14 06:02] LABS: COVID19 ANTIGEN SOFIA FIA NEGATIVE (NEGATIVE)
[2025-03-14 06:03] LABS: Rapid Influenza A Negative (Negative); Rapid Influenza B Negative (Negative)
[2025-03-14 06:05] LABS: Basophils # (auto) 0.1 10 ^3/uL (0-0.2); Basophils % (auto) 0.6 % (0.0-2.0); Eosinophils # (auto) 0.3 10 ^3/uL (0-0.8); Eosinophils % (auto) 3.1 % (0.0-7.0); Hematocrit 42.2 % (41.0-53.0); Hemoglobin 14.7 g/dL (13.5-17.5); Lymphocytes # (auto) 3.5 10 ^3/uL (0.4-5.4); Lymphocytes % (auto) 31.1 % (10.0-50.0); Mean Corpuscular Hemoglobin 31.3 pg (28.0-32.0); Mean Corpuscular Hgb Conc. 34.8 g/dL (32.0-36.0); Mean Corpuscular Volume 89.7 fL (80.0-100.0); Monocytes # (auto) 0.9 10 ^3/uL (0-1.3); Monocytes % (auto) 8.1 % (0.0-12.0); Neutrophils # (auto) 6.4 10 ^3/uL (1.6-8.6); Neutrophils % (auto) 57.1 % (37.0-80.0); Platelet Count (auto) 236 10^3/uL (140-450); Red Cell Distribution Width 14.5 % (11.8-14.3); White Blood Cell 11.2 10^3/uL (4.4-10.8)
[2025-03-14 06:15] LABS: Chloride 106 mmol/L (98-107); Potassium 3.9 mmol/L (3.5-5.1); Sodium 143 mmol/L (136-145)
[2025-03-14 06:16] LABS: Anion Gap 11 (5-15); Calcium 9.8 mg/dL (8.7-10.4); Carbon Dioxide 26 mmol/L (20-31)
[2025-03-14 06:21] LABS: BUN/Creatinine Ratio 11.5 (10.0-20.0); Blood Urea Nitrogen 12 mg/dL (9-23)
[2025-03-14 06:27] LABS: Glucose 146 mg/dL (74-106)
[2025-03-14] MEDS: LEVALBUTEROL HCL 1.25 MG/3 ML NEB NEB SCH (06:32)
[2025-03-14] MEDS: IPRATROPIUM BROM 0.5 MG/2.5ML INH SOL NEB PRN (06:32)
[2025-03-14] MEDS: PANTOPRAZOLE 40 MG TAB PO SCH (07:02)
--- NOTE | 2025-03-14 07:10 | ECG ---
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
[2025-03-14] MEDS: ISOSORBIDE MONONITRATE 20 MG TAB PO SCH (10:06)
[2025-03-14] MEDS: FUROSEMIDE 40 MG/4 ML VIAL IV SCH (10:06)
[2025-03-14] MEDS: CLOPIDOGREL BISULFATE 75 MG TAB PO SCH (10:07)
[2025-03-14] MEDS: ASPirin 81 mg TAB PO SCH (10:07)
[2025-03-14] MEDS: LISINOPRIL 5 MG TAB PO SCH (22:00)
[2025-03-15] VITALS (15 sets, daily range): BP systolic 97–143; BP diastolic 47–75; PULSE 60–87; RESP 16–20; TEMP 97.1–97.7; O2SAT 94–99
--- NOTE | 2025-03-15 12:14 | DVHPN2 ---
Progress Note - Dictate Date Seen: Mar 14, 2025 Medical Necessity Reason Pt with a Central, PICC or Fol: No Subjective PT WITH SOB CHEST PAIN TROPONIN NEGATIVEPMH ORGANIC HD CAD HX OF PTCA STENT HX OF CABG HTN HYPERLIPIDEMIA ECG NO ACUTE CHANGES LAST PTCA 2023 PTCA STENT OM 1 AND OM 2 EF 55% vital signs Vital Sign Date Time Temp Pulse Resp B/P (MAP) Pulse Ox O2 Delivery O2 Flow Rate FiO2 03/15/25 09:24 140/75 03/15/25 08:48 97.2 75 16 94 97.2 03/15/25 07:12 Room Air* 0 21 Total Intake and Output 03/14/25 03/14/25 03/15/25 15:00 23:00 07:00 Output Total 450 ml Balance -450 ml medications Current Medications Medications Dose Ordered Sig/Hernandez Route Start Time Stop Time Status Last Admin Dose Admin Nitroglycerin 0.4 mg Q5MINP PRN SL 03/14/25 02:45 Morphine Sulfate 2 mg Q30M PRN IV 03/14/25 02:45 Aspirin 81 mg DAILY PO 03/14/25 10:00 03/15/25 09:24 81 MG Clopidogrel Bisulfate 75 mg DAILY PO 03/14/25 10:00 03/15/25 09:23 75 MG Furosemide 40 mg DAILY IV 03/14/25 10:00 03/15/25 09:24 40 MG Lisinopril 10 mg DAILY PO 03/14/25 22:00 03/15/25 09:23 10 MG Ipratropium [place] 0.5 mg Q8HPRN PRN NEB 03/14/25 02:45 03/14/25 21:09 0.5 MG Levalbuterol HCl 0.625 mg Q8HP NEB 03/14/25 06:00 03/15/25 07:12 0.625 MG Isosorbide Mononitrate 20 mg BID PO 03/14/25 10:00 03/15/25 09:23 20 MG Pantoprazole Sodium 40 mg DAILY@0600 PO 03/14/25 06:00 03/15/25 06:38 40 MG laboratory and microbiology Laboratory Tests 03/14/25 05:42 Test 03/14/25 05:42 Range/Units Serum Glucose 146 #H 74-106 mg/dL Problem List SOB CHEST PAIN TROPONIN NEGATIVEPMH ORGANIC HD CAD HX OF PTCA STENT HX OF CABG HTN HYPERLIPIDEMIA ECG NO ACUTE CHANGES LAST PTCA 2023 PTCA STENT OM 1 AND OM 2 EF 55% Assessment/Plan CONSIDER [facility] DAPT Plan discussed with: Patient KYLE CHAVEZ MD Mar 15, 2025 12:14
--- NOTE | 2025-03-15 12:35 | DVHPN2 ---
Progress Note - Dictate Date Seen: Mar 15, 2025 Medical Necessity Reason Pt with a Central, PICC or Fol: No Subjective PT WITH SOB CHEST PAIN TROPONIN NEGATIVEPMH ORGANIC HD CAD HX OF PTCA STENT HX OF CABG HTN HYPERLIPIDEMIA ECG NO ACUTE CHANGES LAST PTCA 2023 PTCA STENT OM 1 AND OM 2 EF 55% vital signs Vital Sign Date Time Temp Pulse Resp B/P (MAP) Pulse Ox O2 Delivery O2 Flow Rate FiO2 03/15/25 09:24 140/75 03/15/25 08:48 97.2 75 16 94 97.2 03/15/25 07:12 Room Air* 0 21 Total Intake and Output 03/14/25 03/14/25 03/15/25 15:00 23:00 07:00 Output Total 450 ml Balance -450 ml medications Current Medications Medications Dose Ordered Sig/Hernandez Route Start Time Stop Time Status Last Admin Dose Admin Nitroglycerin 0.4 mg Q5MINP PRN SL 03/14/25 02:45 Morphine Sulfate 2 mg Q30M PRN IV 03/14/25 02:45 Aspirin 81 mg DAILY PO 03/14/25 10:00 03/15/25 09:24 81 MG Clopidogrel Bisulfate 75 mg DAILY PO 03/14/25 10:00 03/15/25 09:23 75 MG Furosemide 40 mg DAILY IV 03/14/25 10:00 03/15/25 09:24 40 MG Lisinopril 10 mg DAILY PO 03/14/25 22:00 03/15/25 09:23 10 MG Ipratropium [place] 0.5 mg Q8HPRN PRN NEB 03/14/25 02:45 03/14/25 21:09 0.5 MG Levalbuterol HCl 0.625 mg Q8HP NEB 03/14/25 06:00 03/15/25 07:12 0.625 MG Isosorbide Mononitrate 20 mg BID PO 03/14/25 10:00 03/15/25 09:23 20 MG Pantoprazole Sodium 40 mg DAILY@0600 PO 03/14/25 06:00 03/15/25 06:38 40 MG laboratory and microbiology Laboratory Tests 03/14/25 05:42 Test 03/14/25 05:42 Range/Units Serum Glucose 146 #H 74-106 mg/dL Problem List SOB CHEST PAIN TROPONIN NEGATIVEPMH ORGANIC HD CAD HX OF PTCA STENT HX OF CABG HTN HYPERLIPIDEMIA ECG NO ACUTE CHANGES LAST PTCA 2023 PTCA STENT OM 1 AND OM 2 EF 55% Assessment/Plan LHC IN AM DAPT Plan discussed with: Patient KYLE CHAVEZ MD Mar 15, 2025 12:35
--- NOTE | 2025-03-15 15:53 | DVHPN2 ---
Subjective History of Present Illness Patient is a 69-year-old male with a past medical history of coronary artery disease, [place], status post CABG, gout, hyperlipidemia, asthma presented to the ED with a chief complaint of acute onset chest pain. Patient reported that on Wednesday he started to feel dizzy, lightheadedness and gradually had mild shortness of breath when he walked and was feeling sick but denied any fever, chills, cough or expectoration, no dysuria. Patient reported he saw his primary knitting machine tender about 3 weeks ago told him that he has to undergo a stress test and may need an angiogram. Today patient reported sudden onset chest pain on the left side, radiating to the arms, improved on taking nitroglycerin felt someone was sitting on the chest. He described the pain similar to previous episodes when he had an NM. patient came to the hospital for further evaluation. From the records patient underwent multiple coronary angiograms the last 1 in December 2023 when a stent was put to the OM 1 and OM 2 and distal emboli protection device was put, increased LVEDP at 32 mmHg was measured. Patient has since been on dual antiplatelet therapy and afterload and preload reduction. Echo from July 2024 shows LVEF more than 55% with moderate aortic stenosis, aortic insufficiency, mild TR and MR. Past medical history: Per HPI Surgical history: CABG, tonsillectomy, multiple coronary angiograms with multiple stents Social history: Patient denies smoking, alcohol, drug use Home medications: Aspirin, Plavix, atorvastatin 40, metoprolol tartrate 25 b.i.d., isosorbide mononitrate 30 b.i.d., lisinopril 10 mg, Spiriva inhaler Patient is seen at bedside today. Doing well. Chest pain is present but improving. Reviewed: H&P Changes from previous H/P or p: No Changes General: Per HPI Objective Vitals Vital Signs Date Time Temp Pulse Resp B/P (MAP) Pulse Ox O2 Delivery O2 Flow Rate FiO2 03/15/25 12:36 97.4 60 16 97/47 (64) 94 97.4 03/15/25 07:12 Room Air* 0 21 Intake/Output Intake and Output 03/15/25 07:00 Output Total 450 ml Balance -450 ml Output Urine Total 450 ml Exam GEN: Healthy appearing, well-developed, NAD. HEENT: NC/AT; MMM. CV: RRR, no m/r/g. LUNGS: CTAB, no w/r/c. ABD: Soft, NT/ND, NBS, no masses or organomegaly. EXT: skin Warm, well perfused. no rashes. No clubbing, cyanosis, or edema. NEURO: Ambulating with no limitations. No focal deficits. Medications Current Medications Medications Dose Ordered Sig/Hernandez Route Start Time Stop Time Status Last Admin Dose Admin Nitroglycerin 0.4 mg Q5MINP PRN SL 03/14/25 02:45 Morphine Sulfate 2 mg Q30M PRN IV 03/14/25 02:45 Aspirin 81 mg DAILY PO 03/14/25 10:00 03/15/25 09:24 81 MG Clopidogrel Bisulfate 75 mg DAILY PO 03/14/25 10:00 03/15/25 09:23 75 MG Furosemide 40 mg DAILY IV 03/14/25 10:00 03/15/25 09:24 40 MG Lisinopril 10 mg DAILY PO 03/14/25 22:00 03/15/25 09:23 10 MG Ipratropium [place] 0.5 mg Q8HPRN PRN NEB 03/14/25 02:45 03/14/25 21:09 0.5 MG Levalbuterol HCl 0.625 mg Q8HP NEB 03/14/25 06:00 03/15/25 07:12 0.625 MG Isosorbide Mononitrate 20 mg BID PO 03/14/25 10:00 03/15/25 09:23 20 MG Pantoprazole Sodium 40 mg DAILY@0600 PO 03/14/25 06:00 03/15/25 06:38 40 MG Laboratory Results Laboratory Tests 03/14/25 05:42 Urinalysis Test 03/14/25 05:19 Urine Color Colorless (Yellow) Urine Clarity Clear (Clear) Urine pH 5.0 (5.0-9.0) Urine Specific [place] 1.005 (1.001-1.035) Urine Protein Negative (Negative) Urine Ketones Negative (Negative) Urine Blood Negative /uL (Negative) Urine Nitrite Negative (Negative) Urine Bilirubin Negative (Negative) Urine Urobilinogen Normal mg/dL (Negative) Urine Leukocyte Esterase Negative /uL (Negative) Urine RBC 4 /hpf (0 - 3) Urine Microscopic WBC < 1 /HPF (0-3) Urine Squamous Epithelial Cells None seen /hpf (<5) Urine Bacteria None seen /hpf (None Seen) Urine Glucose Normal mg/dL (Normal) Labs and/or images reviewed: Labs reviewed by me, Image(s) reviewed by me Assessment/Plan Assessment/Plan 03/15- patient has extensive CAD history, requiring multiple stents and CABG. He is presenting with chest pain left wall pressure sharp, he said pain is similar to prior chest pains requiring interventions.. Labs showing mild white count 11.3, troponins negative x3, BNP is low 59. Given patient's chest pain similar to priors requiring intervention and worsening quality and frequency patient is admitted as unstable angina. Patient has primary knitting machine tender Dr. HANLEY following closely and recently had plans for stress test versus angiogram. Cys aware of case and we will follow up with patient. Patient is on DAPT, Imdur, lisinopril,. No beta blockers found we will defer to PCP/knitting machine tender. We will stop IV Lasix as patient looks euvolemic. Acute chest pain, rule out ACS H/o coronary artery disease s/p CABG, multiple PCIs, multiple stents Possible Unstable angina ?heart failure with a preserved ejection fraction Hypertensive heart disease - 12 lead ECG shows sinus rhythm with normal axis, large Q-wave in lead [address] depression less than 1 mm in the 1 and aVL - troponin levels normal - chest x-ray shows cardiomegaly - last echo from July 2024 shows LVEF more than 55%, mild TR, MR, moderate - last PCI done in December 2023 with a 1 VICENTE - consulted cardiology - aspirin and Plavix - stop Lasix 40 IV daily - isosorbide mononitrate 20 mg b.i.d. Diet cardiac DVT prophylaxis-Lovenox subQ daily PUD prophylaxis: Protonix Tele Full code Plan discussed with: Patient Date of Service: Mar 15, 2025 Billing Provider: BRAYAN THAYER MD Common Visit Codes: [id number] INP/OBS CARE(HIGH) BRAYAN THAYER MD Mar 15, 2025 15:53
[2025-03-16] VITALS (15 sets, daily range): BP systolic 89–137; BP diastolic 48–79; PULSE 68–92; RESP 12–20; TEMP 97.5–98.1; O2SAT 90–99
[2025-03-16] MEDS: IOHEXOL 350 MG/ML 100ML IJ ONE ×2 (07:54→08:46)
[2025-03-16] MEDS: fentaNYL CITRATE 100 MCG/2 ML VL ONE (08:10)
[2025-03-16] MEDS: SODIUM CHL 0.9% 0 ML ONE (08:10)
[2025-03-16] MEDS: ANGIOMAX 250 MG VIAL IV ONE (08:10)
[2025-03-16] MEDS: MIDAZOLAM HCL 2MG/2ML 2ml VIAL (1mg/ml) ONE (08:10)
[2025-03-16] MEDS: LIDOCAINE 2%HCL (LOCAL ANESTH.) INJ 20ML MDV ONE (08:10)
--- NOTE | 2025-03-16 09:31 | DVHOP ---
DATE OF SURGERY: 03/16/2025 INDICATIONS: The patient with history of coronary artery disease, history of coronary artery bypass grafting x 4 with EM to the LAD, saphenous vein graft to the PDA, saphenous vein graft sequence to OM1 and the diagonal as well as EM to the LAD. The patient had multiple angioplasties in the past prior to his bypass surgery and also following bypass surgery. At this time, the patient is having increasing symptoms of chest pain, but it is atypical in nature. The patient is now scheduled to undergo coronary angiography. PROCEDURES PERFORMED: Selective left and right coronary angiography, ventriculogram, right iliac angiography, angiography of the saphenous vein graft x 4 and EM to the LAD and the left subclavian. DESCRIPTION OF PROCEDURE: The patient was prepped and draped in sterile conditions. A 1% Xylocaine was used to anesthetize the right groin. Using a Cook needle, the right femoral artery was engaged with Seldinger technique, a 6-Lao sheath in the right femoral artery. Using a 6-Lao JL4 catheter, 6-Lao JR4 catheter, selective left and right coronary angiography was performed. Using a 6-Lao pigtail catheter, a ventriculogram was done. Then, the 6-Lao JL4 diagnostic catheter was used to cannulate the EM, subclavian, as well as the saphenous vein graft. There were no complications. The patient tolerated the procedure well. Conscious sedation was given. RESULTS: * Left main patent. * Left anterior descending artery was occluded. * [place] circumflex was patent with moderate diffuse disease throughout; however, no flow-restrictive lesion. * Right coronary artery was occluded. * Saphenous vein graft to the PDA was occluded. * Saphenous vein graft sequence to OM1 and diagonal was patent. * EM to the LAD was patent providing collateral circulation to the RCA territory. * Left ventricular function was estimated to be around 50% with an LVEDP of 5 mmHg with no gradient across the aortic valve. CONCLUSION: At this time, no catheter-based or surgical intervention is required. Aggressive risk modification. The patient may be discharged home. Follow up with me in one week. Ivan Welch MD SA/JAM TID: [id number] RECEIPT: [id number]
--- NOTE | 2025-03-16 12:30 | DVHPN2 ---
Progress Note - Dictate Date Seen: Mar 16, 2025 Medical Necessity Reason Pt with a Central, PICC or Fol: No Subjective PT WITH SOB CHEST PAIN TROPONIN NEGATIVEPMH ORGANIC HD CAD HX OF PTCA STENT HX OF CABG HTN HYPERLIPIDEMIA ECG NO ACUTE CHANGES LAST PTCA 2023 PTCA STENT OM 1 AND OM 2 EF 55% vital signs Vital Sign Date Time Temp Pulse Resp B/P (MAP) Pulse Ox O2 Delivery O2 Flow Rate FiO2 03/16/25 11:26 131/79 03/16/25 10:20 68 12 90 03/16/25 09:00 98.1 98.1 03/16/25 06:59 Room Air* 0 21 Total Intake and Output 03/15/25 03/15/25 03/16/25 15:00 23:00 07:00 Intake Total 600 ml Balance 600 ml medications Current Medications Medications Dose Ordered Sig/Hernandez Route Start Time Stop Time Status Last Admin Dose Admin Nitroglycerin 0.4 mg Q5MINP PRN SL 03/14/25 02:45 Morphine Sulfate 2 mg Q30M PRN IV 03/14/25 02:45 Aspirin 81 mg DAILY PO 03/14/25 10:00 03/16/25 11:25 81 MG Clopidogrel Bisulfate 75 mg DAILY PO 03/14/25 10:00 03/16/25 11:26 75 MG Lisinopril 10 mg DAILY PO 03/14/25 22:00 03/16/25 11:26 10 MG Ipratropium [place] 0.5 mg Q8HPRN PRN NEB 03/14/25 02:45 03/14/25 21:09 0.5 MG Levalbuterol HCl 0.625 mg Q8HP NEB 03/14/25 06:00 03/16/25 06:58 0.625 MG Isosorbide Mononitrate 20 mg BID PO 03/14/25 10:00 03/16/25 11:26 20 MG Pantoprazole Sodium 40 mg DAILY@0600 PO 03/14/25 06:00 03/16/25 05:52 40 MG laboratory and microbiology Laboratory Tests 03/14/25 05:42 Test 03/14/25 05:42 Range/Units Serum Glucose 146 #H 74-106 mg/dL Problem List SOB CHEST PAIN TROPONIN NEGATIVEPMH ORGANIC HD CAD HX OF PTCA STENT HX OF CABG HTN HYPERLIPIDEMIA ECG NO ACUTE CHANGES LAST PTCA 2023 PTCA STENT OM 1 AND OM 2 EF 55% Assessment/Plan LHC IN AM DAPT S/P LHC [place] CX PATENT EM TP LAD PATENT SVG SEQUENCE TO DIAG AND OM IS PATENT RCA OCCLUDED SVG TO PDA OCCLUDED EF 50% LVEDP 5mmHg Plan discussed with: Patient Critical Care Time(min): 35 KYLE CHAVEZ MD Mar 16, 2025 12:30
[2025-03-16 13:41] LABS: Basophils # (auto) 0.1 10 ^3/uL (0-0.2); Basophils % (auto) 0.7 % (0.0-2.0); Eosinophils # (auto) 0.3 10 ^3/uL (0-0.8); Eosinophils % (auto) 2.9 % (0.0-7.0); Hematocrit 42.7 % (41.0-53.0); Hemoglobin 14.5 g/dL (13.5-17.5); Lymphocytes # (auto) 2.5 10 ^3/uL (0.4-5.4); Lymphocytes % (auto) 26.4 % (10.0-50.0); Mean Corpuscular Hemoglobin 30.3 pg (28.0-32.0); Monocytes # (auto) 0.7 10 ^3/uL (0-1.3); Monocytes % (auto) 7.4 % (0.0-12.0); Neutrophils % (auto) 62.6 % (37.0-80.0); Platelet Count (auto) 241 10^3/uL (140-450); Red Cell Distribution Width 14.1 % (11.8-14.3); White Blood Cell 9.6 10^3/uL (4.4-10.8)
[2025-03-16 13:55] LABS: INR 1.03 (0.9-1.15); Prothrombin Time 10.9 sec (9.3-11.8)
[2025-03-16 14:00] LABS: Alanine Aminotransferase 34 U/L (7-40); Albumin 4.3 g/dL (3.2-4.8); Alkaline Phosphatase 87 U/L (46-116); Anion Gap 9 (5-15); Aspartate Aminotransferase 23 U/L (<34); BUN/Creatinine Ratio 16.2 (10.0-20.0); Blood Urea Nitrogen 19 mg/dL (9-23); Calcium 9.7 mg/dL (8.7-10.4); Carbon Dioxide 27 mmol/L (20-31); Chloride 100 mmol/L (98-107); Sodium 136 mmol/L (136-145)
[2025-03-16 14:01] LABS: Bilirubin, Total 0.7 mg/dL (0.2-1.0); Glucose 150 mg/dL (74-106)
[2025-03-16] MEDS: HYDROcodone-ACET 10/325MG TAB PO PRN (14:11)
--- NOTE | 2025-03-16 15:55 | DVHDS2 ---
Discharge Summary Date of Admission Mar 14, 2025 at 02:44 Date of Discharge: Mar 16, 2025 Labs/Diagnostic Data: Laboratory Results Test 03/16/25 13:25 03/14/25 05:19 03/14/25 02:54 03/13/25 23:40 White Blood Count 9.6 10^3/uL (4.4-10.8) Red Blood Count 4.80 10^6/uL (4.5-5.90) Hemoglobin 14.5 g/dL (13.5-17.5) Hematocrit 42.7 % (41.0-53.0) Mean Corpuscular Volume 89.0 fL (80.0-100.0) Mean Corpuscular Hemoglobin 30.3 pg (28.0-32.0) Mean Corpuscular Hemoglobin Concent 34.0 g/dL (32.0-36.0) Red Cell Distribution Width 14.1 % (11.8-14.3) Platelet Count 241 10^3/uL (140-450) Mean Platelet Volume 7.5 fL (6.9-10.8) Neutrophils (%) (Auto) 62.6 % (37.0-80.0) Lymphocytes (%) (Auto) 26.4 % (10.0-50.0) Monocytes (%) (Auto) 7.4 % (0.0-12.0) Eosinophils (%) (Auto) 2.9 % (0.0-7.0) Basophils (%) (Auto) 0.7 % (0.0-2.0) Neutrophils # (Auto) 6.0 10 ^3/uL (1.6-8.6) Lymphocytes # (Auto) 2.5 10 ^3/uL (0.4-5.4) Monocytes # (Auto) 0.7 10 ^3/uL (0-1.3) Eosinophils # (Auto) 0.3 10 ^3/uL (0-0.8) Basophils # (Auto) 0.1 10 ^3/uL (0-0.2) Nucleated Red Blood Cells 0.0 % Prothrombin Time 10.9 sec (9.3-11.8) Prothrombin Time INR 1.03 (0.9-1.15) Sodium Level 136 mmol/L (136-145) Potassium Level 4.0 mmol/L (3.5-5.1) Chloride Level 100 mmol/L (98-107) Carbon Dioxide Level 27 mmol/L (20-31) Anion Gap 9 (5-15) Blood Urea Nitrogen 19 mg/dL (9-23) Creatinine 1.17 mg/dL (0.700-1.30) Glomerular Filtration Rate Calc 68 mL/min (>90) BUN/Creatinine Ratio 16.2 (10.0-20.0) Serum Glucose 150 mg/dL (74-106) Calcium Level 9.7 mg/dL (8.7-10.4) Total Bilirubin 0.7 mg/dL (0.2-1.0) Aspartate Amino Transferase (AST) 23 U/L (<34) Alanine Aminotransferase (ALT) 34 U/L (7-40) Alkaline Phosphatase 87 U/L (46-116) Total Protein 7.0 g/dL (5.7-8.2) Albumin 4.3 g/dL (3.2-4.8) Urine Color Colorless (Yellow) Urine Clarity Clear (Clear) Urine pH 5.0 (5.0-9.0) Urine Specific [place] 1.005 (1.001-1.035) Urine Protein Negative (Negative) Urine Ketones Negative (Negative) Urine Blood Negative /uL (Negative) Urine Nitrite Negative (Negative) Urine Bilirubin Negative (Negative) Urine Urobilinogen Normal mg/dL (Negative) Urine Leukocyte Esterase Negative /uL (Negative) Urine RBC 4 /hpf (0 - 3) Urine Microscopic WBC < 1 /HPF (0-3) Urine Squamous Epithelial Cells None seen /hpf (<5) Urine Bacteria None seen /hpf (None Seen) Urine Glucose Normal mg/dL (Normal) Influenza Type A Antigen Negative (Negative) Influenza Type B Antigen Negative (Negative) SARS-CoV-2 Antigen (Rapid) Negative (NEGATIVE) Troponin I High Sensitivity 34 ng/L (</=54) Activated Partial Thromboplast Time 25.9 SEC (24.5-34.5) B-Type Natriuretic Peptide 59.38 pg/mL (0-100) Other Laboratory Tests 03/16/25 13:25 Brief Hx & Hospital Course: 69-year-old male with a past medical history of coronary artery disease, UT, status post CABG, gout, hyperlipidemia, asthma presented to the ED with a chief complaint of acute onset chest pain. Patient reported that on Wednesday he started to feel dizzy, lightheadedness and gradually had mild shortness of breath when he walked and was feeling sick but denied any fever, chills, cough or expectoration, no dysuria. Patient reported he saw his primary engraver jewelry about 3 weeks ago told him that he has to undergo a stress test and may need an angiogram. Today patient reported sudden onset chest pain on the left side, radiating to the arms, improved on taking nitroglycerin felt someone was sitting on the chest. He described the pain similar to previous episodes when he had an UT. patient came to the hospital for further evaluation. From the records patient underwent multiple coronary angiograms the last 1 in December 2023 when a stent was put to the OM 1 and OM 2 and distal emboli protection device was put, increased LVEDP at 32 mmHg was measured. Patient has since been on dual antiplatelet therapy and afterload and preload reduction. Echo from July 2024 shows LVEF more than 55% with moderate aortic stenosis, aortic insufficiency, mild TR and MR. 03/15- patient has extensive CAD history, requiring multiple stents and CABG. He is presenting with chest pain left wall pressure sharp, he said pain is similar to prior chest pains requiring interventions.. Labs showing mild white count 11.3, troponins negative x3, BNP is low 59. Given patient's chest pain similar to priors requiring intervention and worsening quality and frequency patient is admitted as unstable angina. Patient has primary engraver jewelry Dr. HANLEY following closely and recently had plans for stress test versus angiogram. Dr. Neal aware of case and we will follow up with patient. Patient is on DAPT, Imdur, lisinopril,. No beta blockers found we will defer to PCP/engraver jewelry. We will stop IV Lasix as patient looks euvolemic. 03/16 Patient is status post left heart catheterization angiogram with Dr. Love 03/16/2025. No acute disease found during angiogram. per Dr. Love instructions patient is stable for discharge with 1 week follow up with Dr. Love. vital signs stable, pain controlled, patient status post flat bedrest at least 2-3 hours. Tolerating p.o.. Stable for discharge as per plan below. Diagnosis: unstable angina, Ruled out ACS Ruled out UT Stable coronary artery disease status post multiple stents, status post CABG Hypertensive heart disease hypertension Hyperlipidemia plan: - No acute disease found during angiogram. - Continue home medications - Follow up with Dr. Love 1 week in clinic Condition at Discharge: Fair Final Diagnosis/Problems List unstable angina, Ruled out ACS Ruled out UT Stable coronary artery disease status post multiple stents, status post CABG Hypertensive heart disease hypertension Hyperlipidemia Discharge Disposition: Home Discharge Instruct/Medications Diet: Cardiac 2g Na,low cholest Activity: No Restrictions, As Tolerated Follow Up/Referral: See below Medications: See below Discharge Statement: "Patient was advised to return to the ER or call 911 if any headaches, dizziness, shortness of breath, chest pain, abdominal pain, bleeding, fevers, or worsening of medical condition. Patient was counseled about treatment plan, medications, possible side effects, patientverbalized understanding. All questions were answered to the best of my ability. This discharge took greater then 30 minutes in planning, reviewing documentation, counseling the patient, and discussing with other team members." Date of Service: Mar 16, 2025 Billing Provider: BRAYAN THAYER MD Common Visit Codes: 39806-WTA/OBS DISCH DAY >30min BRAYAN THAYER MD Mar 16, 2025 15:55
[2025-03-16] MEDS ORDERED: SODIUM CHLORIDE 0.9% 500 ML IV ONE (17:15)
--- NOTE | 2025-03-20 14:13 | ECG ---
[facility] Test Date: 2025-03-14 Test Time: 09:34:52 Pat Name: RUBÉN ATKINSON Department: ED Room: [facility]6T B Gender: M Straw Boss: tequila : 1955 Requested By: JUSTIN DELCID Order Number: [id number] Reading MD: Kennedy Zhong Measurements Intervals [place] Rate: 67 P: -7 MA: 179 QRS: -27 QRSD: 105 T: 52 QT: 447 QTc: 472 Interpretive Statements Sinus rhythm Abnormal R-wave progression, early transition Left ventricular hypertrophy Abnormal T, consider ischemia, anterior leads Electronically Signed On 03-20-2025 22:25:46 PDT by Kennedy Zhong Please click the below link to view image of tracing.
== END 2025-03-16 18:53 | disposition home or self-care (01) | DRG 287 ==
LOC: EDBD 22:50 → ER 22:50 → OVERFLOW 03-14 02:44 → TELE-WESTW 03-14 22:05
PROVIDERS: ADMIT Student in an Organized Health Care Education/Training Program; ATTEND Student in an Organized Health Care Education/Training Program
PROC: B211YZZ Fluoroscopy of Multiple Coronary Arteries using Other Contrast (ICD-10-PCS; principal; 2025-03-16)
PROC: 4A023N7 Measurement of Cardiac Sampling and Pressure, Left Heart, Percutaneous Approach (ICD-10-PCS; 2025-03-16)
PROC: B215YZZ Fluoroscopy of Left Heart using Other Contrast (ICD-10-PCS; 2025-03-16)
PROC: 5A1221Z Performance of Cardiac Output, Continuous (ICD-10-PCS; 2025-03-16)
PROC: B212YZZ Fluoroscopy of Single Coronary Artery Bypass Graft using Other Contrast (ICD-10-PCS; 2025-03-16)
PROC: B41FYZZ Fluoroscopy of Right Lower Extremity Arteries using Other Contrast (ICD-10-PCS; 2025-03-16)
PROC: B21FYZZ Fluoroscopy of Other Bypass Graft using Other Contrast (ICD-10-PCS; 2025-03-16)
DX: I25.700 Atherosclerosis of coronary artery bypass graft(s), unspecified, with unstable angina pectoris (principal); I25.110 Atherosclerotic heart disease of native coronary artery with unstable angina pectoris; I50.9 Heart failure, unspecified; Z20.822 Contact with and (suspected) exposure to COVID-19; J44.89 Other specified chronic obstructive pulmonary disease; I11.0 Hypertensive heart disease with heart failure; E78.5 Hyperlipidemia, unspecified; E66.9 Obesity, unspecified; Z68.33 Body mass index [BMI] 33.0-33.9, adult; E11.65 Type 2 diabetes mellitus with hyperglycemia; Z95.5 Presence of coronary angioplasty implant and graft
CPT/HCPCS: 36415; 71045; 80048; 80053; 81001; 83880; 84484; 85025; 85610; 85730; 87426; 87804; 93005; 93306; 93459; 94640; 96374; 96375; 99152; 99291; G0378; J2250; J2405; J3490

== ENCOUNTER 2025-07-06 05:31 | Emergency (ER) | payer OTHER, MEDICAID ==
[~2025-07-06] VITALS: Ht 175.3 cm; Wt 102.0 kg
[~2025-07-06 05:31] MED LIST changes: -ATOR-507 PO; -BUDE1AER5 IN; -HYDR-4798 PO; -LORA-622 PO; -SILD100T PO; -TIOT17SP IN; -TRIA0.1P2 TOP
--- NOTE | 2025-07-06 06:44 | ED.PDOC ---
Back pain HPI HPI Comments A 70 YEAR OLD MALE PRESENTS TO THE ED WITH COMPLAINT OF LEFT LOWER BACK PAIN RADIATING DOWN HIS LEFT LEG THAT STARTED 3 DAYS AGO. PATIENT DESCRIBES PAIN SHARP STABBING PAIN THAT IS CONSTANT AND IS SIMILAR TO PREVIOUS FLARE UPS. PATIENT TAKES PERCOCET AT HOME PAIN MANAGEMENT. PT REQUESTS MORPHINE PAIN INJECTION AT THIS TIME. PATIENT DENIES ANY FEVER, CHILLS, UNEXPLAINED WEIGHT LOSS, OR RECENT TRAUMA, FALL, OR INJURY TO THE BACK. PATIENT DENIES ANY NEW OR WORSENING NUMBNESS, TINGLING, OR WEAKNESS IN THE LEGS, SADDLE ANESTHESIA, BOWEL OR BLADDER INCONTINENCE OR RETENTION, OR CONSTANT PAIN UNRELIEVED BY REST OR POSITION CHANGE. HE HAS A HISTORY OF CAD,CHF, COPD. PATIENT DENIES SHORTNESS OF BREATH, CHEST PAIN, ABDOMINAL PAIN, NAUSEA, VOMITING, HEADACHE, OR OTHER COMPLAINTS. NO OTHER SYMPTOMS OR MODIFYING FACTORS AT THIS TIME. PATIENT IS ALERT, ORIENTED X 4. Chief Complaint: Back Pain Time Seen by MD: 06:29 Primary Care Provider: EDNA Reviewed Notes: Nurses Notes, Medications, Allergies Allergies: Coded Allergies: COVID-19 (mRNA) Vaccine (Verified Allergy, Intermediate, SKIN RASH, BODY ACHES, MALAISE, 07/15/22) Flu Virus Vaccine (Verified Allergy, Unknown, 07/06/25) Home Meds Active Scripts Oxycodone W/ Acetaminophen (Percocet 5/325MG) 1 Tab Tb, 1 TAB PO BID, #12 TAB Prov:HEATHER NOVA 07/06/25 Prednisone (Prednisone) 20 Mg Tab, 40 MG PO DAILY, #30 TAB Prov:HEATHER NOVA 07/06/25 Reported Medications Fluticasone Propionate (Nasal) (Allergy Relief) 50 Mcg/Act Spr, 50 MCG NA BID for ALLERGIES, SPRAY 12/29/23 Nitroglycerin (NTROSTAT SUBLINGUAL) 0.4 Mg Sl, 0.4 MG SL PRN for CHEST PAIN, TAB *MAY REPEAT EVERY 5 MINUTES X 3 TOTAL IF NO RELIEF, INITIATE ANALGESIC THERAPY. NOTIFY PHYSICIAN *Do not crush. 12/29/23 Alpha Tocopheryl Acid Succinat (VITAMIN E) 200 Unit Tab, 200 UNIT PO DAILY for SUPPLEMENT, TAB 12/29/23 Isosorbide Mononitrate (Isosorbide Mononitrate Er) 30 Mg Tab, 30 MG PO BID, MG 12/29/23 Zinc Gluconate (Zinc) 50 Mg Tab, 1 TAB PO DAILY for SUPPLEMENT 07/15/22 Vitamin E (E1000) 1,000 Unit Cap, 1 CAP PO DAILY for SUPPLEMENT 07/15/22 Cyanocobalamin (Vitamin B12) 100 Mcg Tab, 1 TAB PO DAILY for SUPPLEMENT 07/15/22 Ascorbic Acid (Vitamin C) 500 Mg Tab, 1 TAB PO DAILY for SUPPLEMENT 07/15/22 Albuterol Sulfate (VENTOLIN MDI) 90 Mcg Ih, 1 PUFF IN Q4HP PRN for SHORTNESS OF BREATH 07/15/22 Ketotifen Fumarate (Ophth) (Zaditor) 0.025 % Derek, 1 DROP EACHEYE BID for DRY EYES 07/15/22 Metoprolol Tartrate (Metoprolol Tartrate) 25 Mg Tab, 1 TAB PO BID for HYPERTENSION 07/15/22 Famotidine (Famotidine) 20 Mg Tab, 1 TAB PO BID PRN for GERD 07/15/22 Baclofen (Baclofen) 10 Mg Tab, 1 TAB PO Q12HR PRN for BACK PAIN/SPASMS 07/15/22 Clopidogrel Bisulfate (CLOPIDOGREL) 75 Mg Tab, 1 TAB PO DAILY for CAD 07/15/22 Lisinopril (Lisinopril) 10 Mg Tab, 1 TAB PO QPM for HYPERTENSION 07/15/22 Colchicine (Colchicine) 0.6 Mg Cap, 2 CAP PO BID PRN for GOUT FLARE-UP 07/15/22 Allopurinol (Allopurinol) 300 Mg Tab, 1 TAB PO QPM for GOUT 07/15/22 Cholecalciferol (VITAMIN D3) 2,000 Unit Tab, 1 TAB PO DAILY for SUPPLEMENT 03/27/22 Aspirin (Aspirin Adult Low Strengt) 81 Mg Chw, 1 TAB PO QPM for CAD 12/07/11 Information Source: Patient, Emergency Med Personnel Mode of Arrival: EMS Timing: Days (3) Location of Back pain: (L) Lower back Radiates to: Posterior: (L) Buttocks, (L) Thigh Radiates to: Medial: (L) Buttocks, (L) Thigh Radiates to: Lateral: (L) Buttocks, (L) Thigh Severity: Moderate Onset: Spontaneous History of: Chronic Back Pain, Other Modifying Factors: Movement, Twisting, Walking Associated signs and symptoms: None Past Medical History PAST MEDICAL HISTORY: Angina, Asthma, CAD, DM, Gout, High Lipids, HTN, [place] Past Medical History (Other): CHRONIC LOW BACK PAIN Surgical History: CABG, PTCA, Tonsillectomy Family History Family History: No family hx of DM, No family hx of Heart april, No family hx of HTN, No family hx of Stroke Social History Smoker: Non-Smoker Alcohol: Occasionally Drugs: Denies Drug Use Lives In: Home Constitutional: reports: others (ANXIOUS ); denies: chills, diaphoresis, fatigue, fever, malaise, sweats, weakness EENTM: denies: blurred vision, double vision, ear bleeding, ear discharge, ear drainage, ear pain, ear ringing, eye pain, eye redness, hearing loss, mouth pain, mouth swelling, nasal discharge, nose bleeding, nose congestion, nose pain, photophobia, tearing, throat pain, throat swelling, voice changes, others Respiratory: denies: cough, hemoptysis, orthopnea, SOB at rest, shortness of breath, SOB with excertion, stridor, wheezing, others Cardiovascular: denies: chest pain, dizzy spells, diaphoresis, Dyspnea on exertion, edema, irregular heart beat, left arm pain, lightheadedness, palpitations, PND, syncope, others Gastrointestinal: denies: abdomen distended, abdominal pain, blood streaked bowels, constipated, diarrhea, dysphagia, difficulty swallowing, hematemesis, melena, nausea, poor appetite, poor fluid intake, rectal bleeding, rectal pain, vomiting, others Genitourinary: denies: burning, dysuria, flank pain, frequency, hematuria, incontinence, penile discharge, penile sore, pain, testicle pain, testicle swelling, urgency, others Neurological: denies: dizziness, fainting, headache, left sided numbness, left sided weakness, numbness, paresthesia, pre-existing deficit, right sided numbness, right sided weakness, seizure, speech problems, tingling, tremors, weakness, others Musculoskeletal: reports: back pain, muscle pain; denies: gout, joint pain, joint swelling, muscle stiffness, neck pain, others Integumetry: denies: bruises, change in color, change in hair/nails, dryness, laceration, lesions, lumps, rash, wounds, others Allergic/Immunocompromised: denies: Difficulty Healing, Frequent Infections, Hives, Itching, others Hematologic/Lymphatic: denies: anemia, blood clots, easy bleeding, easy bruising, swollen glands, others Endocrine: denies: excessive hunger, excessive sweating, excessive thirst, excessive urination, flushing, intolerance to cold, intolerance to heat, unexplained weight gain, unexplained weight loss, others Psychiatric: denies: anxiety, bipolar disorder, depression, hopeless, panic disorder, schizophrenia, sleepless, suicidal, others All Other Systems: Reviewed and Negative Physical Exam General Appearance: No Apparent Distress, Obese, Other (ANXIOUS ) HEENT: Normal ENT Inspection, PERRL/EOMI, Pharynx Normal, TMs Normal Neck: Full Range of Motion, Non-Tender, Normal, Normal Inspection Respiratory: Chest Non-Tender, Lungs Clear, No Accessory Muscle Use, No Respiratory Distress, Normal Breath Sounds Cardiovascular: No Edema, No JVD, No Murmur, No Gallop, Normal Peripheral Pulses, Regular Rate/Rhythm Breast Exam: Deferred Gastrointestinal: No Organomegaly, Non Tender, No Pulsatile Mass, Normal Bowel Sounds, Soft Genitalia: Deferred Pelvic: Deferred Rectal: Deferred Extremities: No calf tenderness, Normal capillary refill, Normal inspection, Normal range of motion, Non-tender, No pedal edema Musculoskeletal : Location: Bilateral Extremity Location: Back Apperance: Tenderness: Moderate (TENDERNESS AND MUSCLE SPASM ON LOWER BACK, NO BONY TENDERNESS, SWELLING AND DEFORMITY. ) Neurologic: Alert, office admin II-XII nml as Tested, No Motor Deficits, Normal Affect, Normal Mood, No Sensory Deficits Cerebellar Function: Normal Reflexes: Normal Skin: Dry, Normal Color, Warm Peripheral Pulses: 2+ carotid (R), 2+ carotid (L) Lymphatic: No Adenopathy Was a procedure done? Was a procedure done?: No Back Pain Differential Dx Differential Diagnosis: Fracture, Musculoskeletal Pain, Other (CHRONIC LOW BACK PAIN EXACERBATION ) X-Ray, Labs, Meds, VS Vital Signs Date Time Temp Pulse Resp B/P (MAP) Pulse Ox O2 Delivery O2 Flow Rate FiO2 07/06/25 07:47 98.2 69 18 110/77 (88) 94 98.2 07/06/25 07:46 69 18 110/77 07/06/25 07:26 64 18 118/70 07/06/25 06:40 98.3 70 20 118/85 (96) 96 98.3 07/06/25 06:32 Room Air* 0 21 07/06/25 05:32 98.2 79 16 120/80 96 98.2 Current Medications Medications (Trade) Dose Ordered Sig/Hernandez Route Start Time Stop Time Status Last Admin Ondansetron HCl (Zofran Po) 4 mg ONCE ONCE PO 07/06/25 07:15 07/06/25 07:16 DC 07/06/25 07:26 Morphine Sulfate 8 mg ONCE ONCE IM 07/06/25 07:15 07/06/25 07:17 DC 07/06/25 07:26 PATIENT: CHRISTINA ATKINSON: [id number]: [id number] : 1955 LOC: ER ROOM / BED: / AGE / SEX: 70 / M ADM STATUS: [facility] ER SERVICE 0 ORDERING PHYSICIAN: HEATHER NOVA PROCEDURE(s): LUMB2 - LUMBAR SPINE 3 VIEW REASON: LOW BACK PAIN TO LEFT LOWER LEG ORDER NUMBER(s): [id number], ACCESSION NUMBER(s): [id number] EXAM: XY LUMBAR SPINE 3 VIEW HISTORY: LOW BACK PAIN TO LEFT LOWER LEG COMPARISON: None TECHNIQUE: AP and lateral views of the lumbar spine were performed. FINDINGS: No fractures are identified about the lumbar spine. There is severe degenerative disc disease and facet arthropathy. There are atherosclerotic calcifications of the abdominal aorta. There is fecal retention in the colon. IMPRESSION: 1. No fracture of the lumbar spine. 2. Severe lumbar degenerative disc disease and facet arthropathy. Consider follow-up noncontrast MRI of the lumbar spine for better characterization on an outpatient basis, especially if the patient complains of lower extremity radicular symptoms. 3. Fecal retention in the colon suggestive of constipation. ATED BY: STACIA MCKINNEY MD DICTATED DATE/TIME: 07/06/25743 SIGNED BY: STACIA MCKINNEY MD SIGNED DATE/TIME: 07/06/25743 CC: X-Ray, Labs, Meds, VS Comment EXTERNAL MEDICAL RECORDS REVIEWED: [NONE] INDEPENDENT HISTORIANS: [NONE] SOCIAL DETERMINANTS OF HEALTH: CAD, CHF, COPD, HTN, HLD, DM, ANXIETY, CHRONIC LOW BACK PAIN LABS ORDERED: NONE REVIEWED AND INTERPRETED RESULTS: NONE IMAGING ORDERED: X RAY TREATMENTS ORDERED: MORPHINE 8MG AND ZOFRAN 4MG PROCEDURES PERFORMED: NONE CRITICAL CARE TIME: NONE I HAVE DISCUSSED THE PATIENT WITH THE ATTENDING PHYSICIAN, DR. LANGE, SHE AGREES WITH THE PATIENT'S PLAN OF CARE AND DISPOSITION. BASED ON THE PATIENT'S PERSISTENCE OF SYMPTOMS, THE PATIENT SOUGHT OUT ED CONSULT. BASED ON MY PHYSICAL EXAMINATION AND PATIENT'S HISTORY OF CHRONIC BACK PAIN, THERE IS NO NEW INJURY TO THE PATIENT'S BACK. THE PATIENT DENIES ANY NUMBNESS, WEAKNESS, TINGLING SENSATION, URINARY/BOWEL INCONTINENCE. THERE ARE NO SIGNS AND SYMPTOMS OF CAUDA EQUINA. THE PATIENT STATES THAT THE PAIN IS THE SAME WHEN THEY HAVE BACK PAIN FLARE-UP AND THAT THEY ONLY NEED PAIN MEDICATION IN THE ER. AT THIS POINT, THERE IS NO INDICATION FOR ANY IMAGING. THE PATIENT WAS ADVISED TO FOLLOW UP WITH ORTHO SPECIALIST FOR THEIR CHRONIC LOWER BACK PAIN AND PAIN MANAGEMENT DOCTOR FOR PAIN CONTROL. PATIENT WAS RX PERCOCET 5MG FOR PAIN MEDICATION. OVERALL PATIENT'S VITAL SIGNS ARE STABLE AND THE PATIENT WILL BE DISCHARGED HOME. Time of 1ST Reevaluation: 08:00 Reevaluation 1ST: Improved Patient Education/Counseling: Diagnosis, Treatment, Need For Follow Up Family Education/Counseling: Diagnosis, Treatment, Need For Follow Up, No Family Present Medical Screening: No EMC Exist At This Time SEPSIS Sepsis Screen Date sepsis recognized/suspect: Jul 06, 2025 Time Sepsis recognized/suspect: 0532 Recent Procedure: No On Antibiotic Therapy: No Respiratory Rate >20: No Heart Rate >90: No Temp<36 C (96.8 F) or >38.3 C: No SBP <90 or MAP <65 mmHG: No New Acute Mental Status Change: No Is the patient on CPAP, BIPAP,: No Physician Orders Lumbar Spine 3 View (07/06/25 06:31) Vital Signs Date Time Temp Pulse Resp B/P (MAP) Pulse Ox O2 Delivery O2 Flow Rate FiO2 07/06/25 07:47 98.2 69 18 110/77 (88) 94 98.2 07/06/25 07:46 69 18 110/77 07/06/25 07:26 64 18 118/70 07/06/25 06:40 98.3 70 20 118/85 (96) 96 98.3 07/06/25 06:32 Room Air* 0 21 07/06/25 05:32 98.2 79 16 120/80 96 98.2 Medications Medications Dose Ordered Sig/Hernandez Route Start Time Stop Time Status Last Admin Dose Admin Morphine Sulfate 8 mg ONCE ONCE IM 07/06/25 07:15 07/06/25 07:17 DC 07/06/25 07:26 Ondansetron HCl 4 mg ONCE ONCE PO 07/06/25 07:15 07/06/25 07:16 DC 07/06/25 07:26 Departure 1 Departure Time of Disposition: 08:00 Impression: Primary Impression: Exacerbation of chronic back pain Additional Impressions: DDD (degenerative disc disease), lumbosacral Qualified Codes: M51.372 - Other intervertebral disc degeneration, lumbosacral region with discogenic back pain and lower extremity pain Lumbar radiculopathy Disposition: HOME / SELF CARE / HOMELESS Condition: Stable Additional Instructions: FOLLOW-UP WITH PCP IN 1 TO 2 DAYS. TAKE MEDICATIONS PRESCRIBED. RETURN TO ED FOR ANY NEW OR WORSENING SYMPTOMS. e-Prescriptions Oxycodone W/ Acetaminophen (Percocet 5/325MG) 1 Tab Tb 1 TAB PO BID, #12 TAB Prov: HEATHER NOVA 07/06/25 Prednisone (Prednisone) 20 Mg Tab 40 MG PO DAILY, #30 TAB Prov: HEATHER NOVA 07/06/25 Discharged With: Self, Relative Critical Care Note Critical Care Time?: No Stability Stability form required: No Heart Score Heart Score: Heart Score Response (Comments) Value History N/A 0 EKG N/A 0 Age N/A 0 Risk Factors N/A 0 Troponin N/A 0 Total 0 I personally scribed for HEATHER NOVA ([email or web address]) on 07/06/25 at 06:44. Electronically submitted by Lelia Dukes ([facility]). I personally scribed for HEATHER NOVA ([email or web address]) on 07/06/25 at 07:17. Electronically submitted by Lelia Dukes ([facility]). I personally scribed for HEATHER NOVA ([email or web address]) on 07/06/25 at 07:18. Electronically submitted by Lelia Dukes ([facility]). HEATHER NOVA Jul 06, 2025 06:44
[2025-07-06] MEDS ORDERED: PERCOT PO (07:11)
[2025-07-06] MEDS ORDERED: PRED20TA2 PO (07:11)
[2025-07-06] MEDS: MEPERIDINE HCL (50 MG/ML) 1 ML VIAL IM ONE (07:17)
[2025-07-06] MEDS: MORPHINE SULFATE 4 MG/ML SYR/VIAL IM ONE (07:26)
[2025-07-06] MEDS: ONDANSETRON ODT 4 MG TAB PO ONE (07:26)
[2025-07-06 07:47] VITALS: BP 110/77; PULSE 69; RESP 18; TEMP 98.2; O2SAT 94
--- NOTE | 2025-07-06 07:47 | DVH ---
EXAM: XY LUMBAR SPINE 3 VIEW HISTORY: LOW BACK PAIN TO LEFT LOWER LEG COMPARISON: None TECHNIQUE: AP and lateral views of the lumbar spine were performed. FINDINGS: No fractures are identified about the lumbar spine. There is severe degenerative disc disease and fa cet arthropathy. There are atherosclerotic calcifications of the abdominal aorta. There is fecal ret ention in the colon. IMPRESSION: 1. No fracture of the lumbar spine. 2. Severe lumbar degenerative disc disease and facet arthropathy. Consider follow-up noncontrast MRI of the lumbar spine for better characterization on an outpatient basis, especially if the patient co mplains of lower extremity radicular symptoms. 3. Fecal retention in the colon suggestive of constipation.
== END 2025-07-06 07:51 | disposition home or self-care (01) ==
LOC: EDBD 05:31 → ER 05:31
DX: M51.17 Intervertebral disc disorders with radiculopathy, lumbosacral region (principal); G89.29 Other chronic pain; F10.90 Alcohol use, unspecified, uncomplicated; E78.5 Hyperlipidemia, unspecified; E11.9 Type 2 diabetes mellitus without complications; F41.9 Anxiety disorder, unspecified; I11.0 Hypertensive heart disease with heart failure; I50.9 Heart failure, unspecified; I25.10 Atherosclerotic heart disease of native coronary artery without angina pectoris; J44.89 Other specified chronic obstructive pulmonary disease; M10.9 Gout, unspecified; J45.909 Unspecified asthma, uncomplicated; Z79.899 Other long term (current) drug therapy; Z90.89 Acquired absence of other organs; Z88.7 Allergy status to serum and vaccine; Z95.1 Presence of aortocoronary bypass graft; Z79.891 Long term (current) use of opiate analgesic; Z79.82 Long term (current) use of aspirin; Z79.52 Long term (current) use of systemic steroids; Z79.02 Long term (current) use of antithrombotics/antiplatelets
CPT/HCPCS: 72100; 96372; 99283; J2270; Q0162

== ENCOUNTER 2025-07-15 11:29 | Emergency (ER) | payer OTHER, MEDICAID ==
[~2025-07-15] VITALS: Ht 175.3 cm; Wt 103.5 kg
[~2025-07-15 11:29] MED LIST changes: +PERCOT PO; +PRED20TA2 PO
--- NOTE | 2025-07-15 12:27 | DVH ---
XY CHEST PORTABLE, HISTORY: sob COMPARISON: XY CHEST PORTABLE on DOS: 03/13/25, XY CHEST TWO VIEWS ROUTINE on DOS: 12/29/23, XY CHEST PO RTABLE on DOS: 12/07/23 XY CHEST PORTABLE on DOS: 03/13/25, XY CHEST TWO VIEWS ROUTINE on DOS: 12/29/23, XY CHEST PORTABLE on DO S: 12/07/23 TECHNICAL DATA: 1 view of the chest was obtained. FINDINGS: Lines and tubes: None Cardiomediastinal silhouette: normal Pulmonary vasculature: prominent Lung expansion: normal Lung airspace: normal Lung interstitium: normal Pleura: normal Pneumothorax: no Bones: Unremarkable Other: no IMPRESSION: Mild pulmonary vascular congestion.
[2025-07-15 12:29] LABS: Hematocrit 40.4 % (41.0-53.0); Hemoglobin 13.7 g/dL (13.5-17.5); Mean Corpuscular Hemoglobin 30.3 pg (28.0-32.0); Mean Corpuscular Volume 89.4 fL (80.0-100.0); Nucleated Red Blood Cells % 0.0 %
--- NOTE | 2025-07-15 12:34 | ED.PDOC ---
GI ASSESSMENT HPI Comments 70 y.o male with PMHx of cad, HTN, DM , PE, presents to the ED for a chief complaint of left sided lower abdominal pain associated with swelling that started 10 days ago. Patient reports being seen on 07/05/25 for left lower back pain, was given Morphine and d/c home prednisone and Percocet. Patient states following this visit, he developed swelling and pain to the LLQ. He was seen by pain management 4 days ago given back pain and was told he might have gas build up. Today, patient was seen at the urgent care d/t pain worsening and was sent to the ED for further evaluation. He does state the LLQ pain radiating to his left lower back region where he has chronic pain. No recent falls, nausea, vomiting, diarrhea, constipation noted. Chief Complaint: Abdominal Pain Time Seen by MD: 12:00 Primary Care Provider: EDNA Reviewed Notes: Nurses Notes, Medications, Allergies Allergies: Coded Allergies: COVID-19 (mRNA) Vaccine (Verified Allergy, Intermediate, SKIN RASH, BODY ACHES, MALAISE, 07/15/22) Flu Virus Vaccine (Verified Allergy, Unknown, 07/06/25) Home Meds Active Scripts Oxycodone W/ Acetaminophen (Percocet 5/325MG) 1 Tab Tb, 1 TAB PO BID, #12 TAB Prov:HEATHER NOVA 07/06/25 Prednisone (Prednisone) 20 Mg Tab, 40 MG PO DAILY, #30 TAB Prov:HEATHER NOVA 07/06/25 Reported Medications Fluticasone Propionate (Nasal) (Allergy Relief) 50 Mcg/Act Spr, 50 MCG NA BID for ALLERGIES, SPRAY 12/29/23 Nitroglycerin (NTROSTAT SUBLINGUAL) 0.4 Mg Sl, 0.4 MG SL PRN for CHEST PAIN, TAB *MAY REPEAT EVERY 5 MINUTES X 3 TOTAL IF NO RELIEF, INITIATE ANALGESIC THERAPY. NOTIFY PHYSICIAN *Do not crush. 12/29/23 Alpha Tocopheryl Acid Succinat (VITAMIN E) 200 Unit Tab, 200 UNIT PO DAILY for SUPPLEMENT, TAB 12/29/23 Isosorbide Mononitrate (Isosorbide Mononitrate Er) 30 Mg Tab, 30 MG PO BID, MG 12/29/23 Zinc Gluconate (Zinc) 50 Mg Tab, 1 TAB PO DAILY for SUPPLEMENT 07/15/22 Vitamin E (E1000) 1,000 Unit Cap, 1 CAP PO DAILY for SUPPLEMENT 07/15/22 Cyanocobalamin (Vitamin B12) 100 Mcg Tab, 1 TAB PO DAILY for SUPPLEMENT 07/15/22 Ascorbic Acid (Vitamin C) 500 Mg Tab, 1 TAB PO DAILY for SUPPLEMENT 07/15/22 Albuterol Sulfate (VENTOLIN MDI) 90 Mcg Ih, 1 PUFF IN Q4HP PRN for SHORTNESS OF BREATH 07/15/22 Ketotifen Fumarate (Ophth) (Zaditor) 0.025 % Derek, 1 DROP EACHEYE BID for DRY EYES 07/15/22 Metoprolol Tartrate (Metoprolol Tartrate) 25 Mg Tab, 1 TAB PO BID for HYPERTENSION 07/15/22 Famotidine (Famotidine) 20 Mg Tab, 1 TAB PO BID PRN for GERD 07/15/22 Baclofen (Baclofen) 10 Mg Tab, 1 TAB PO Q12HR PRN for BACK PAIN/SPASMS 07/15/22 Clopidogrel Bisulfate (CLOPIDOGREL) 75 Mg Tab, 1 TAB PO DAILY for CAD 07/15/22 Lisinopril (Lisinopril) 10 Mg Tab, 1 TAB PO QPM for HYPERTENSION 07/15/22 Colchicine (Colchicine) 0.6 Mg Cap, 2 CAP PO BID PRN for GOUT FLARE-UP 07/15/22 Allopurinol (Allopurinol) 300 Mg Tab, 1 TAB PO QPM for GOUT 07/15/22 Cholecalciferol (VITAMIN D3) 2,000 Unit Tab, 1 TAB PO DAILY for SUPPLEMENT 03/27/22 Aspirin (Aspirin Adult Low Strengt) 81 Mg Chw, 1 TAB PO QPM for CAD 12/07/11 Information Source: Patient Mode of Arrival: Ambulatory Timing: Days (10) Duration: Since onset Quality: Sharp Vomitus: None Stool: Normal Severity: Moderate Recent: None Recent Hx of: None Pain Location: LLQ Associated sign and symptoms: Abdominal Pain Past Medical History PAST MEDICAL HISTORY: Angina, Asthma, CAD, DM, Gout, High Lipids, HTN, MD Surgical History: CABG, PTCA, Tonsillectomy Family History Family History: No family hx of DM, No family hx of Heart april, No family hx of HTN, No family hx of Stroke Social History Smoker: Non-Smoker Alcohol: Occasionally Drugs: Denies Drug Use Lives In: Home Constitutional: denies: chills, diaphoresis, fatigue, fever, malaise, sweats, weakness, others EENTM: denies: blurred vision, double vision, ear bleeding, ear discharge, ear drainage, ear pain, ear ringing, eye pain, eye redness, hearing loss, mouth pain, mouth swelling, nasal discharge, nose bleeding, nose congestion, nose pain, photophobia, tearing, throat pain, throat swelling, voice changes, others Respiratory: denies: cough, hemoptysis, orthopnea, SOB at rest, shortness of breath, SOB with excertion, stridor, wheezing, others Cardiovascular: denies: chest pain, dizzy spells, diaphoresis, Dyspnea on exertion, edema, irregular heart beat, left arm pain, lightheadedness, palpitations, PND, syncope, others Gastrointestinal: reports: abdominal pain; denies: abdomen distended, blood str eaked bowels, constipated, diarrhea, dysphagia, difficulty swallowing, hematemesis, melena, nausea, poor appetite, poor fluid intake, rectal bleeding, rectal pain, vomiting, others Genitourinary: denies: burning, dysuria, flank pain, frequency, hematuria, incontinence, penile discharge, penile sore, pain, testicle pain, testicle swelling, urgency, others Neurological: denies: dizziness, fainting, headache, left sided numbness, left sided weakness, numbness, paresthesia, pre-existing deficit, right sided numbness, right sided weakness, seizure, speech problems, tingling, tremors, weakness, others Musculoskeletal: reports: back pain; denies: gout, joint pain, joint swelling, muscle pain, muscle stiffness, neck pain, others Integumetry: denies: bruises, change in color, change in hair/nails, dryness, laceration, lesions, lumps, rash, wounds, others Allergic/Immunocompromised: denies: Difficulty Healing, Frequent Infections, Hives, Itching, others Hematologic/Lymphatic: denies: anemia, blood clots, easy bleeding, easy bruising, swollen glands, others Endocrine: denies: excessive hunger, excessive sweating, excessive thirst, excessive urination, flushing, intolerance to cold, intolerance to heat, unexplained weight gain, unexplained weight loss, others Psychiatric: denies: anxiety, bipolar disorder, depression, hopeless, panic disorder, schizophrenia, sleepless, suicidal, others All Other Systems: Reviewed and Negative Physical Exam General Appearance: Moderate Distress HEENT: Normal ENT Inspection, Pharynx Normal, TMs Normal Neck: Full Range of Motion, Non-Tender, Normal, Normal Inspection Respiratory: Chest Non-Tender, Lungs Clear, No Accessory Muscle Use, No Respiratory Distress, Normal Breath Sounds Cardiovascular: No Edema, No JVD, No Murmur, No Gallop, Normal Peripheral Pulses, Regular Rate/Rhythm Breast Exam: Deferred Gastrointestinal: Diffuse Genitalia: Deferred Pelvic: Deferred Rectal: Deferred Extremities: No calf tenderness, Normal capillary refill, Normal inspection, Normal range of motion, Non-tender, No pedal edema Musculoskeletal : Apperance: Normal Neurologic: Alert, 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 Was a procedure done?: No GI differential Dx Differential Diagnosis: Constipation, Diverticular disease, Esophagitis, Gas tritis/PUD, Gastroenteritis X-Ray, Labs, Meds, VS Vital Signs Date Time Temp Pulse Resp B/P (MAP) Pulse Ox O2 Delivery O2 Flow Rate FiO2 07/15/25 11:30 98.0 60 15 153/76 96 98.0 Lab Test 07/15/25 11:55 Range/Units White Blood Count 11.4 H 4.4-10.8 10^3/uL Red Blood Count 4.52 4.5-5.90 10^6/uL Hemoglobin 13.7 13.5-17.5 g/dL Hematocrit 40.4 L 41.0-53.0 % Mean Corpuscular Volume 89.4 80.0-100.0 fL Mean Corpuscular Hemoglobin 30.3 28.0-32.0 pg Mean Corpuscular Hemoglobin Concent 33.9 32.0-36.0 g/dL Red Cell Distribution Width 14.0 11.8-14.3 % Platelet Count 265 140-450 10^3/uL Mean Platelet Volume 7.4 6.9-10.8 fL Neutrophils (%) (Auto) 56.9 37.0-80.0 % Lymphocytes (%) (Auto) 31.3 10.0-50.0 % Monocytes (%) (Auto) 8.7 0.0-12.0 % Eosinophils (%) (Auto) 2.8 0.0-7.0 % Basophils (%) (Auto) 0.3 0.0-2.0 % Neutrophils # (Auto) 6.5 1.6-8.6 10 ^3/uL Lymphocytes # (Auto) 3.6 0.4-5.4 10 ^3/uL Monocytes # (Auto) 1.0 0-1.3 10 ^3/uL Eosinophils # (Auto) 0.3 0-0.8 10 ^3/uL Basophils # (Auto) 0 0-0.2 10 ^3/uL Nucleated Red Blood Cells 0.0 % Sodium Level 138 136-145 mmol/L Potassium Level 4.0 3.5-5.1 mmol/L Chloride Level 101 98-107 mmol/L Carbon Dioxide Level 26 20-31 mmol/L Anion Gap 11 5-15 Blood Urea Nitrogen 15 9-23 mg/dL Creatinine 0.99 0.700-1.30 mg/dL Glomerular Filtration Rate Calc 82 >90 mL/min BUN/Creatinine Ratio 15.2 10.0-20.0 Serum Glucose 105 74-106 mg/dL Calcium Level 9.3 8.7-10.4 mg/dL Troponin I High Sensitivity 5 </=54 ng/L Patient alert. Complaining of abdominal pain. Vitals stable. Answering questions. Abdominal diffusely tender. Cardiac marker within normal limits. Reviewed his previous visit. WBC slightly elevated. Hemoglobin within normal limits. Blood pressure slightly elevated. Explained to the patient. Continue monitoring. Time of 1ST Reevaluation: 12:26 Reevaluation 1ST: Unchanged Patient Education/Counseling: Diagnosis, Treatment Family Education/Counseling: No Family Present SEPSIS Sepsis Screen Date sepsis recognized/suspect: Jul 15, 2025 Time Sepsis recognized/suspect: 1133 Recent Procedure: No On Antibiotic Therapy: No Respiratory Rate >20: No Heart Rate >90: No Temp<36 C (96.8 F) or >38.3 C: No SBP <90 or MAP <65 mmHG: No New Acute Mental Status Change: No Is the patient on CPAP, BIPAP,: No Physician Orders Chest Portable (07/15/25 11:50) Urinalysis (07/15/25 11:50) Ct Ab Pel Wo Con-No Oral Or Iv (07/15/25 12:16) Vital Signs Date Time Temp Pulse Resp B/P (MAP) Pulse Ox O2 Delivery O2 Flow Rate FiO2 07/15/25 11:30 98.0 60 15 153/76 96 98.0 Laboratory Tests Test 07/15/25 11:55 White Blood Count 11.4 10^3/uL (4.4-10.8) H Departure 1 Departure Time of Disposition: 14:06 Impression: Primary Impression: Acute abdominal pain Additional Impressions: HTN (hypertension) Qualified Codes: I10 - Essential (primary) hypertension Uncontrolled diabetes mellitus Qualified Codes: E13.65 - Other specified diabetes mellitus with hyperglycemia Disposition: ADMITTED INPATIENT Admit to: Med Surg Condition: Guarded Critical Care Note Critical Care Time?: No Stability Stability form required: No I personally scribed for SHU RIVER MD ([email or web address]) on 07/15/25 at 12:34. Electronically submitted by Lelia Dukes ([email or web address]). SHU RIVER MD Jul 15, 2025 12:34
[2025-07-15 12:42] LABS: Chloride 101 mmol/L (98-107); Potassium 4.0 mmol/L (3.5-5.1); Sodium 138 mmol/L (136-145)
[2025-07-15 12:43] LABS: Anion Gap 11 (5-15); Calcium 9.3 mg/dL (8.7-10.4); Carbon Dioxide 26 mmol/L (20-31)
[2025-07-15 12:48] LABS: BUN/Creatinine Ratio 15.2 (10.0-20.0); Blood Urea Nitrogen 15 mg/dL (9-23); Glucose 105 mg/dL (74-106)
--- NOTE | 2025-07-15 13:02 | DVH ---
CT CT AB PEL WO CON-NO ORAL OR IV INDICATION: PAIN EXAM DATE: 07/15/2025 12:17 PM COMPARISON: [facility] on DOS: 05/15/22, [facility] on DOS: 03/26/22 RADIATION DOSE: CTDIvol: 25.06 mGy, DLP: 1400.3 mGy*cm PROCEDURE: Helical CT images were obtained of the abdomen and pelvis without IV contrast Sagittal and coronal reconstructions are provided. ORAL CONTRAST: None. ADDITIONAL IMAGES / REFORMATS: None All C T scans at this medical facility are performed using dose modulation techniques as appropriate to a p erformed exam including the following: Automated exposure control was utilized; adjustment of the MA and/or KV according to patient size; and use of iterative reconstruction technique. FINDINGS: LUNG BASE: Normal. LIVER: Mild hepatic steatosis. GALLBLADDER AND BILIARY TREE: No calcified gallstones. Normal caliber wall. No intra- or extrahepatic biliary ductal dilation. PANCREAS: Normal. SPLEEN: Normal. BOWEL: Moderate colonic diverticulosis. Normal appendix. ADRENALS: Normal. KIDNEYS AND URETER: Normal. BLADDER: Normal. REPRODUCTIVE ORGANS: Normal. LYMPH NODES:No lymphadenopathy. PERITONEUM: No ascites or free air. No other fluid collection. VESSELS: Scattered atherosclerotic calcifications are noted. RETROPERITONEUM: Normal. ABDOMINAL WALL: Small fat containing left inguinal hernia. BONES: Scattered osseous degenerative changes are noted. IMPRESSION: No acute intraabdominal abnormality. Moderate colonic diverticulosis. Mild hepatic steatosis.
[2025-07-15 14:51] VITALS: PULSE 60; RESP 19; O2SAT 97
[2025-07-15] MEDS: SODIUM CHLORIDE 0.9% 1,000 ML IV ONE (14:56)
[2025-07-15 15:22] LABS: Urine Protein, UAD Negative (Negative)
[2025-07-15 18:29] VITALS: TEMP 97.5
[2025-07-15] MEDS ORDERED: HYDROcodone-ACET 5/325MG TAB PO PRN (19:30)
[2025-07-15] MEDS ORDERED: ONDANSETRON HCL 4 MG/2 ML VIAL IV PRN (19:30)
[2025-07-15] MEDS ORDERED: ACETAMINOPHEN 325 MG TAB PO PRN (19:30)
[2025-07-15 19:32] VITALS: BP 153/73; PULSE 55; RESP 20; O2SAT 95
[2025-07-15] MEDS ORDERED: METOPROLOL TARTRATE 25 MG TAB PO SCH (22:00)
[2025-07-15] MEDS ORDERED: ATORVASTATIN 20 MG TAB PO SCH (22:00)
[2025-07-16] MEDS ORDERED: LISINOPRIL 5 MG TAB PO SCH (10:00)
[2025-07-16] MEDS ORDERED: ALLOPURINOL 100 MG TAB PO SCH (10:00)
[2025-07-16] MEDS ORDERED: CLOPIDOGREL BISULFATE 75 MG TAB PO SCH (10:00)
== END 2025-07-15 20:00 | disposition left against medical advice (07) ==
LOC: ER 11:29 → OVERFLOW 19:17 → UNDOADMIN 19:17 → UNDODISIN 20:00
DX: R10.32 Left lower quadrant pain (principal); E13.65 Other specified diabetes mellitus with hyperglycemia; I10 Essential (primary) hypertension; E78.5 Hyperlipidemia, unspecified; I21.9 Acute myocardial infarction, unspecified; J45.909 Unspecified asthma, uncomplicated; Z98.890 Other specified postprocedural states; Z79.82 Long term (current) use of aspirin; Z79.899 Other long term (current) drug therapy; Z88.8 Allergy status to other drugs, medicaments and biological substances
CPT/HCPCS: 36415; 71045; 74176; 80048; 81001; 83690; 84484; 85025; 96360; 99285; J7030; G0378